=== PATIENT | male | born 1945 | race Native Hawaiian/Other Pacific Islander ===

== ENCOUNTER 2016-10-01 09:48 | Outpatient (CLI) | payer OTHER ==
[~2016-10-01 09:48] MED LIST: BENICAR HCT1 TA2 PO; BENICAR HCT1 TAB PO; BENTYL10 MG PO
== END 2016-10-01 19:48 | disposition home or self-care (01) ==
LOC: LABW 09:48
DX: I48.0 Paroxysmal atrial fibrillation (principal); Z79.01 Long term (current) use of anticoagulants; Z51.81 Encounter for therapeutic drug level monitoring
CPT/HCPCS: 36415; 85610

== ENCOUNTER 2016-10-08 09:53 | Outpatient (CLI) | payer OTHER | END 2016-10-08 19:13 | disposition home or self-care (01) | LOC: LABW 09:53 | DX: I48.0 Paroxysmal atrial fibrillation (principal); Z79.01 Long term (current) use of anticoagulants; Z51.81 Encounter for therapeutic drug level monitoring | CPT/HCPCS: 36415; 85610 ==

== ENCOUNTER 2016-10-21 12:54 | Outpatient (CLI) | payer OTHER | END 2016-10-21 23:05 | disposition home or self-care (01) | LOC: LABW 12:54 | DX: I48.0 Paroxysmal atrial fibrillation (principal); Z79.01 Long term (current) use of anticoagulants; Z51.81 Encounter for therapeutic drug level monitoring | CPT/HCPCS: 36415; 85610 ==

== ENCOUNTER 2016-10-28 13:16 | Outpatient (CLI) | payer OTHER | END 2016-10-28 20:07 | disposition home or self-care (01) | LOC: LABW 13:16 | DX: Z79.01 Long term (current) use of anticoagulants (principal); I48.0 Paroxysmal atrial fibrillation; Z51.81 Encounter for therapeutic drug level monitoring | CPT/HCPCS: 36415; 85610 ==

== ENCOUNTER 2016-11-04 13:08 | Outpatient (CLI) | payer OTHER | END 2016-11-04 20:12 | disposition home or self-care (01) | LOC: LABW 13:08 | DX: Z79.01 Long term (current) use of anticoagulants (principal); I48.0 Paroxysmal atrial fibrillation; Z51.81 Encounter for therapeutic drug level monitoring | CPT/HCPCS: 36415; 85610 ==

== ENCOUNTER 2016-11-11 07:37 | Outpatient (CLI) | payer OTHER | END 2016-11-11 22:59 | disposition home or self-care (01) | LOC: LABW 07:37 | DX: Z79.01 Long term (current) use of anticoagulants (principal); I48.0 Paroxysmal atrial fibrillation; Z51.81 Encounter for therapeutic drug level monitoring | CPT/HCPCS: 36415; 85610 ==

== ENCOUNTER 2016-11-19 07:56 | Outpatient (CLI) | payer OTHER | END 2016-11-19 23:36 | disposition home or self-care (01) | LOC: LABW 07:56 | DX: Z79.01 Long term (current) use of anticoagulants (principal); I48.0 Paroxysmal atrial fibrillation; Z51.81 Encounter for therapeutic drug level monitoring | CPT/HCPCS: 36415; 85610 ==

== ENCOUNTER 2016-11-21 09:43 | Outpatient (CLI) | payer OTHER | END 2016-11-21 19:21 | disposition home or self-care (01) | LOC: LABW 09:43 | DX: Z79.01 Long term (current) use of anticoagulants (principal); I48.0 Paroxysmal atrial fibrillation; Z51.81 Encounter for therapeutic drug level monitoring | CPT/HCPCS: 36415; 85610 ==

== ENCOUNTER 2016-11-25 08:21 | Outpatient (CLI) | payer OTHER | END 2016-11-26 01:57 | disposition home or self-care (01) | LOC: LABW 08:21 | DX: Z79.01 Long term (current) use of anticoagulants (principal); I48.0 Paroxysmal atrial fibrillation; Z51.81 Encounter for therapeutic drug level monitoring | CPT/HCPCS: 36415; 85610 ==

== ENCOUNTER 2016-12-02 08:04 | Outpatient (CLI) | payer OTHER | END 2016-12-02 19:32 | disposition home or self-care (01) | LOC: LABW 08:04 | DX: Z79.01 Long term (current) use of anticoagulants (principal); I48.0 Paroxysmal atrial fibrillation; Z51.81 Encounter for therapeutic drug level monitoring | CPT/HCPCS: 36415; 85610 ==

== ENCOUNTER 2016-12-09 09:27 | Outpatient (CLI) | payer OTHER | END 2016-12-09 19:44 | disposition home or self-care (01) | LOC: LABW 09:27 | DX: Z79.899 Other long term (current) drug therapy (principal); I48.0 Paroxysmal atrial fibrillation; Z51.81 Encounter for therapeutic drug level monitoring | CPT/HCPCS: 36415; 85610 ==

== ENCOUNTER 2016-12-16 08:14 | Outpatient (CLI) | payer OTHER | END 2016-12-16 19:19 | disposition home or self-care (01) | LOC: LABW 08:14 | DX: Z79.899 Other long term (current) drug therapy (principal); I48.0 Paroxysmal atrial fibrillation; Z51.81 Encounter for therapeutic drug level monitoring | CPT/HCPCS: 36415; 85610 ==

== ENCOUNTER 2016-12-23 08:48 | Outpatient (CLI) | payer OTHER | END 2016-12-23 19:22 | disposition home or self-care (01) | LOC: LABW 08:48 | DX: Z79.899 Other long term (current) drug therapy (principal); I48.0 Paroxysmal atrial fibrillation; Z51.81 Encounter for therapeutic drug level monitoring | CPT/HCPCS: 36415; 85610 ==

== ENCOUNTER 2016-12-30 08:24 | Outpatient (CLI) | payer OTHER | END 2016-12-30 09:24 | disposition home or self-care (01) | LOC: LABW 08:24 | DX: Z79.899 Other long term (current) drug therapy (principal); Z51.81 Encounter for therapeutic drug level monitoring; I48.0 Paroxysmal atrial fibrillation | CPT/HCPCS: 36415; 85610 ==

== ENCOUNTER 2017-01-01 12:42 | Outpatient (CLI) | payer OTHER | END 2017-01-01 13:42 | disposition home or self-care (01) | LOC: LABW 12:42 | DX: Z79.899 Other long term (current) drug therapy (principal); I48.0 Paroxysmal atrial fibrillation | CPT/HCPCS: 36415; 85610 ==

== ENCOUNTER 2017-01-06 08:26 | Outpatient (CLI) | payer OTHER | END 2017-01-06 19:09 | disposition home or self-care (01) | LOC: LABW 08:26 | DX: Z79.899 Other long term (current) drug therapy (principal); I48.0 Paroxysmal atrial fibrillation; Z51.81 Encounter for therapeutic drug level monitoring | CPT/HCPCS: 36415; 85610 ==

== ENCOUNTER 2017-01-13 07:44 | Outpatient (CLI) | payer OTHER | END 2017-01-13 19:22 | disposition home or self-care (01) | LOC: LABW 07:44 | DX: Z79.899 Other long term (current) drug therapy (principal); I48.0 Paroxysmal atrial fibrillation; Z51.81 Encounter for therapeutic drug level monitoring | CPT/HCPCS: 36415; 85610 ==

== ENCOUNTER 2017-01-20 09:17 | Outpatient (CLI) | payer OTHER | END 2017-01-20 19:24 | disposition home or self-care (01) | LOC: LABW 09:17 | DX: Z79.899 Other long term (current) drug therapy (principal); I48.0 Paroxysmal atrial fibrillation; Z51.81 Encounter for therapeutic drug level monitoring | CPT/HCPCS: 36415; 85610 ==

== ENCOUNTER 2017-01-24 07:29 | Outpatient (CLI) | payer OTHER | END 2017-01-24 19:07 | disposition home or self-care (01) | LOC: LABW 07:29 | DX: I48.0 Paroxysmal atrial fibrillation (principal); Z79.899 Other long term (current) drug therapy | CPT/HCPCS: 36415; 85610 ==

== ENCOUNTER 2017-01-28 08:39 | Outpatient (CLI) | payer OTHER | END 2017-01-28 19:06 | disposition home or self-care (01) | LOC: LABW 08:39 | DX: I48.0 Paroxysmal atrial fibrillation (principal); Z79.899 Other long term (current) drug therapy | CPT/HCPCS: 36415; 85610 ==

== ENCOUNTER 2017-02-03 09:11 | Outpatient (CLI) | payer OTHER | END 2017-02-03 19:05 | disposition home or self-care (01) | LOC: LABW 09:11 | DX: Z79.899 Other long term (current) drug therapy (principal); Z51.81 Encounter for therapeutic drug level monitoring; I48.0 Paroxysmal atrial fibrillation | CPT/HCPCS: 36415; 85610 ==

== ENCOUNTER 2017-02-10 09:17 | Outpatient (CLI) | payer OTHER | END 2017-02-10 19:20 | disposition home or self-care (01) | LOC: LABW 09:17 | DX: Z79.899 Other long term (current) drug therapy (principal); I48.0 Paroxysmal atrial fibrillation; Z51.81 Encounter for therapeutic drug level monitoring | CPT/HCPCS: 36415; 85610 ==

== ENCOUNTER 2017-02-25 10:09 | Outpatient (CLI) | payer OTHER | END 2017-02-25 19:30 | disposition home or self-care (01) | LOC: LABW 10:09 | DX: Z79.899 Other long term (current) drug therapy (principal); I48.0 Paroxysmal atrial fibrillation; Z51.81 Encounter for therapeutic drug level monitoring | CPT/HCPCS: 36415; 85610 ==

== ENCOUNTER 2017-03-17 13:45 | Outpatient (CLI) | payer OTHER | END 2017-03-17 19:12 | disposition home or self-care (01) | LOC: LABW 13:45 | DX: Z79.899 Other long term (current) drug therapy (principal); Z51.81 Encounter for therapeutic drug level monitoring; I48.0 Paroxysmal atrial fibrillation | CPT/HCPCS: 36415; 85610 ==

== ENCOUNTER 2017-04-07 12:25 | Outpatient (CLI) | payer OTHER | END 2017-04-07 13:30 | disposition home or self-care (01) | LOC: LABW 12:25 | DX: Z79.899 Other long term (current) drug therapy (principal); I48.0 Paroxysmal atrial fibrillation; Z51.81 Encounter for therapeutic drug level monitoring | CPT/HCPCS: 36415; 85610 ==

== ENCOUNTER 2017-04-14 07:35 | Outpatient (CLI) | payer OTHER | END 2017-04-14 08:35 | disposition home or self-care (01) | LOC: LABW 07:35 | DX: Z79.899 Other long term (current) drug therapy (principal); I48.0 Paroxysmal atrial fibrillation; Z51.81 Encounter for therapeutic drug level monitoring | CPT/HCPCS: 36415; 85610 ==

== ENCOUNTER 2017-04-21 07:44 | Outpatient (CLI) | payer OTHER | END 2017-04-21 19:24 | disposition home or self-care (01) | LOC: LABW 07:44 | DX: Z79.899 Other long term (current) drug therapy (principal); I48.0 Paroxysmal atrial fibrillation; Z51.81 Encounter for therapeutic drug level monitoring | CPT/HCPCS: 36415; 85610 ==

== ENCOUNTER 2017-04-28 08:02 | Outpatient (CLI) | payer OTHER | END 2017-04-28 09:05 | disposition home or self-care (01) | LOC: LABW 08:02 | DX: Z79.899 Other long term (current) drug therapy (principal); I48.0 Paroxysmal atrial fibrillation; Z51.81 Encounter for therapeutic drug level monitoring | CPT/HCPCS: 36415; 85610 ==

== ENCOUNTER 2017-05-05 08:07 | Outpatient (CLI) | payer OTHER | END 2017-05-05 19:19 | disposition home or self-care (01) | LOC: LABW 08:07 | DX: Z79.899 Other long term (current) drug therapy (principal); I48.0 Paroxysmal atrial fibrillation; Z51.81 Encounter for therapeutic drug level monitoring | CPT/HCPCS: 36415; 85610 ==

== ENCOUNTER 2017-05-19 13:14 | Outpatient (CLI) | payer OTHER | END 2017-05-19 19:38 | disposition home or self-care (01) | LOC: LABW 13:14 | DX: Z79.899 Other long term (current) drug therapy (principal); I48.0 Paroxysmal atrial fibrillation; Z51.81 Encounter for therapeutic drug level monitoring | CPT/HCPCS: 36415; 85610 ==

== ENCOUNTER 2017-06-03 08:32 | Outpatient (CLI) | payer OTHER | END 2017-06-03 18:59 | disposition home or self-care (01) | LOC: LABW 08:32 | DX: Z79.899 Other long term (current) drug therapy (principal); I48.0 Paroxysmal atrial fibrillation; Z51.81 Encounter for therapeutic drug level monitoring | CPT/HCPCS: 36415; 85610 ==

== ENCOUNTER 2017-06-23 11:08 | Outpatient (CLI) | payer OTHER | END 2017-06-23 19:04 | disposition home or self-care (01) | LOC: LABW 11:08 | DX: Z79.899 Other long term (current) drug therapy (principal); Z51.81 Encounter for therapeutic drug level monitoring; I48.0 Paroxysmal atrial fibrillation | CPT/HCPCS: 36415; 85610 ==

== ENCOUNTER 2017-07-14 11:04 | Outpatient (CLI) | payer OTHER | END 2017-07-14 12:05 | disposition home or self-care (01) | LOC: LABW 11:04 | DX: Z79.899 Other long term (current) drug therapy (principal); I48.0 Paroxysmal atrial fibrillation; Z51.81 Encounter for therapeutic drug level monitoring | CPT/HCPCS: 36415; 85610 ==

== ENCOUNTER 2017-07-21 08:58 | Outpatient (CLI) | payer OTHER | END 2017-07-21 19:30 | disposition home or self-care (01) | LOC: LABW 08:58 | DX: Z79.899 Other long term (current) drug therapy (principal); Z51.81 Encounter for therapeutic drug level monitoring; I48.0 Paroxysmal atrial fibrillation | CPT/HCPCS: 36415; 85610 ==

== ENCOUNTER 2017-07-28 10:34 | Outpatient (CLI) | payer OTHER | END 2017-07-28 19:02 | disposition home or self-care (01) | LOC: LABW 10:34 | DX: Z79.899 Other long term (current) drug therapy (principal); I48.0 Paroxysmal atrial fibrillation; Z51.81 Encounter for therapeutic drug level monitoring | CPT/HCPCS: 36415; 85610 ==

== ENCOUNTER 2017-08-04 08:34 | Outpatient (CLI) | payer OTHER | END 2017-08-04 09:35 | disposition home or self-care (01) | LOC: LABW 08:34 | DX: Z79.899 Other long term (current) drug therapy (principal); Z51.81 Encounter for therapeutic drug level monitoring; I48.0 Paroxysmal atrial fibrillation | CPT/HCPCS: 36415; 85610 ==

== ENCOUNTER 2017-08-11 09:44 | Outpatient (CLI) | payer OTHER | END 2017-08-11 10:45 | disposition home or self-care (01) | LOC: LABW 09:44 | DX: Z79.899 Other long term (current) drug therapy (principal); Z51.81 Encounter for therapeutic drug level monitoring; I48.0 Paroxysmal atrial fibrillation | CPT/HCPCS: 36415; 85610 ==

== ENCOUNTER 2017-08-18 09:20 | Outpatient (CLI) | payer OTHER | END 2017-08-18 19:04 | disposition home or self-care (01) | LOC: LABW 09:20 | DX: Z79.899 Other long term (current) drug therapy (principal); I48.0 Paroxysmal atrial fibrillation; Z51.81 Encounter for therapeutic drug level monitoring | CPT/HCPCS: 36415; 85610 ==

== ENCOUNTER 2017-08-25 10:15 | Outpatient (CLI) | payer OTHER | END 2017-08-25 18:56 | disposition home or self-care (01) | LOC: LABW 10:15 | DX: Z79.899 Other long term (current) drug therapy (principal); Z51.81 Encounter for therapeutic drug level monitoring; I48.0 Paroxysmal atrial fibrillation | CPT/HCPCS: 36415; 85610 ==

== ENCOUNTER 2017-09-01 09:56 | Outpatient (CLI) | payer OTHER | END 2017-09-01 11:00 | disposition home or self-care (01) | LOC: LABW 09:56 | DX: Z79.899 Other long term (current) drug therapy (principal); I48.0 Paroxysmal atrial fibrillation; Z51.81 Encounter for therapeutic drug level monitoring | CPT/HCPCS: 36415; 85610 ==

== ENCOUNTER 2017-09-08 11:05 | Outpatient (CLI) | payer OTHER | END 2017-09-08 19:18 | disposition home or self-care (01) | LOC: LABW 11:05 | DX: Z79.899 Other long term (current) drug therapy (principal); Z51.81 Encounter for therapeutic drug level monitoring; I48.0 Paroxysmal atrial fibrillation | CPT/HCPCS: 36415; 85610 ==

== ENCOUNTER 2017-09-23 10:06 | Outpatient (CLI) | payer OTHER | END 2017-09-23 19:29 | disposition home or self-care (01) | LOC: LABW 10:06 | DX: Z79.899 Other long term (current) drug therapy (principal); Z51.81 Encounter for therapeutic drug level monitoring; I48.0 Paroxysmal atrial fibrillation | CPT/HCPCS: 36415; 85610 ==

== ENCOUNTER 2017-09-30 14:45 | Outpatient (CLI) | payer OTHER | END 2017-09-30 21:23 | disposition home or self-care (01) | LOC: LABW 14:45 | DX: Z79.899 Other long term (current) drug therapy (principal); I48.0 Paroxysmal atrial fibrillation; Z51.81 Encounter for therapeutic drug level monitoring | CPT/HCPCS: 36415; 85610 ==

== ENCOUNTER 2017-10-06 10:41 | Outpatient (CLI) | payer OTHER | END 2017-10-06 20:28 | disposition home or self-care (01) | LOC: LABW 10:41 | DX: I48.0 Paroxysmal atrial fibrillation (principal); Z79.899 Other long term (current) drug therapy; Z51.81 Encounter for therapeutic drug level monitoring | CPT/HCPCS: 36415; 85610 ==

== ENCOUNTER 2017-10-14 10:26 | Outpatient (CLI) | payer OTHER | END 2017-10-14 11:30 | disposition home or self-care (01) | LOC: LABW 10:26 | DX: Z79.899 Other long term (current) drug therapy (principal); Z51.81 Encounter for therapeutic drug level monitoring; I48.0 Paroxysmal atrial fibrillation | CPT/HCPCS: 36415; 85610 ==

== ENCOUNTER 2017-10-17 11:27 | Outpatient (CLI) | payer OTHER | END 2017-10-17 19:31 | disposition home or self-care (01) | LOC: LABW 11:27 | DX: Z79.899 Other long term (current) drug therapy (principal); Z51.81 Encounter for therapeutic drug level monitoring; I48.0 Paroxysmal atrial fibrillation | CPT/HCPCS: 36415; 85610 ==

== ENCOUNTER 2017-10-24 09:03 | Outpatient (CLI) | payer OTHER | END 2017-10-24 21:49 | disposition home or self-care (01) | LOC: LABW 09:03 | DX: Z79.899 Other long term (current) drug therapy (principal); Z51.81 Encounter for therapeutic drug level monitoring; I48.0 Paroxysmal atrial fibrillation | CPT/HCPCS: 36415; 85610 ==

== ENCOUNTER 2017-10-31 10:48 | Outpatient (CLI) | payer OTHER | END 2017-10-31 19:23 | disposition home or self-care (01) | LOC: LABW 10:48 | DX: Z79.899 Other long term (current) drug therapy (principal); Z51.81 Encounter for therapeutic drug level monitoring; I48.0 Paroxysmal atrial fibrillation | CPT/HCPCS: 36415; 85610 ==

== ENCOUNTER 2017-11-07 10:07 | Outpatient (CLI) | payer OTHER | END 2017-11-07 21:06 | disposition home or self-care (01) | LOC: LABW 10:07 | DX: Z79.899 Other long term (current) drug therapy (principal); I48.0 Paroxysmal atrial fibrillation; Z51.81 Encounter for therapeutic drug level monitoring | CPT/HCPCS: 36415; 85610 ==

== ENCOUNTER 2017-11-14 13:47 | Outpatient (CLI) | payer OTHER | END 2017-11-14 19:40 | disposition home or self-care (01) | LOC: LAB 13:47 | DX: Z79.899 Other long term (current) drug therapy (principal); I48.0 Paroxysmal atrial fibrillation; Z51.81 Encounter for therapeutic drug level monitoring | CPT/HCPCS: 36415; 85610 ==

== ENCOUNTER 2017-11-21 10:18 | Outpatient (CLI) | payer OTHER | END 2017-11-21 21:58 | disposition home or self-care (01) | LOC: LABW 10:18 | DX: Z79.899 Other long term (current) drug therapy (principal); Z51.81 Encounter for therapeutic drug level monitoring; I48.0 Paroxysmal atrial fibrillation | CPT/HCPCS: 36415; 85610 ==

== ENCOUNTER 2017-12-12 10:13 | Outpatient (CLI) | payer OTHER | END 2017-12-12 18:00 | disposition home or self-care (01) | LOC: LABW 10:13 | DX: Z79.899 Other long term (current) drug therapy (principal); Z51.81 Encounter for therapeutic drug level monitoring; I48.0 Paroxysmal atrial fibrillation | CPT/HCPCS: 36415; 85610 ==

== ENCOUNTER 2018-01-01 11:36 | Outpatient (CLI) | payer OTHER | END 2018-01-01 22:48 | disposition home or self-care (01) | LOC: LABW 11:36 | DX: Z79.899 Other long term (current) drug therapy (principal); I48.0 Paroxysmal atrial fibrillation; Z51.81 Encounter for therapeutic drug level monitoring | CPT/HCPCS: 36415; 85610 ==

== ENCOUNTER 2018-01-08 11:15 | Outpatient (CLI) | payer OTHER | END 2018-01-08 19:32 | disposition home or self-care (01) | LOC: LABW 11:15 | DX: Z79.01 Long term (current) use of anticoagulants (principal); Z79.899 Other long term (current) drug therapy; I48.0 Paroxysmal atrial fibrillation | CPT/HCPCS: 36415; 85610 ==

== ENCOUNTER 2018-01-15 09:51 | Outpatient (CLI) | payer OTHER | END 2018-01-15 22:05 | disposition home or self-care (01) | LOC: LABW 09:51 | DX: Z79.01 Long term (current) use of anticoagulants (principal); Z79.899 Other long term (current) drug therapy; Z51.81 Encounter for therapeutic drug level monitoring; I48.0 Paroxysmal atrial fibrillation | CPT/HCPCS: 36415; 85610 ==

== ENCOUNTER 2018-01-22 13:17 | Outpatient (CLI) | payer OTHER | END 2018-01-22 19:40 | disposition home or self-care (01) | LOC: LABW 13:17 | DX: Z79.01 Long term (current) use of anticoagulants (principal); Z79.899 Other long term (current) drug therapy; Z51.81 Encounter for therapeutic drug level monitoring; I48.0 Paroxysmal atrial fibrillation | CPT/HCPCS: 36415; 85610 ==

== ENCOUNTER 2018-01-29 09:37 | Outpatient (CLI) | payer OTHER | END 2018-01-29 22:27 | disposition home or self-care (01) | LOC: LABW 09:37 | DX: Z79.01 Long term (current) use of anticoagulants (principal); Z79.899 Other long term (current) drug therapy; Z51.81 Encounter for therapeutic drug level monitoring; I48.0 Paroxysmal atrial fibrillation | CPT/HCPCS: 36415; 85610 ==

== ENCOUNTER 2018-02-05 09:15 | Outpatient (CLI) | payer OTHER | END 2018-02-05 22:04 | disposition home or self-care (01) | LOC: LABW 09:15 | DX: Z79.01 Long term (current) use of anticoagulants (principal); Z79.899 Other long term (current) drug therapy; Z51.81 Encounter for therapeutic drug level monitoring; I48.0 Paroxysmal atrial fibrillation | CPT/HCPCS: 36415; 85610 ==

== ENCOUNTER 2018-02-12 12:44 | Outpatient (CLI) | payer OTHER | END 2018-02-12 23:35 | disposition home or self-care (01) | LOC: LABW 12:44 | DX: Z79.01 Long term (current) use of anticoagulants (principal); Z79.899 Other long term (current) drug therapy; Z51.81 Encounter for therapeutic drug level monitoring; I48.0 Paroxysmal atrial fibrillation | CPT/HCPCS: 36415; 85610 ==

== ENCOUNTER 2018-02-19 13:21 | Outpatient (CLI) | payer OTHER | END 2018-02-19 19:12 | disposition home or self-care (01) | LOC: LABW 13:21 | DX: Z79.01 Long term (current) use of anticoagulants (principal); Z79.899 Other long term (current) drug therapy; Z51.81 Encounter for therapeutic drug level monitoring; I48.0 Paroxysmal atrial fibrillation | CPT/HCPCS: 36415; 85610 ==

== ENCOUNTER 2018-02-26 09:33 | Outpatient (CLI) | payer OTHER | END 2018-02-26 20:06 | disposition home or self-care (01) | LOC: LABW 09:33 | DX: Z79.01 Long term (current) use of anticoagulants (principal); Z79.899 Other long term (current) drug therapy; Z51.81 Encounter for therapeutic drug level monitoring; I48.0 Paroxysmal atrial fibrillation | CPT/HCPCS: 36415; 85610 ==

== ENCOUNTER 2018-03-05 09:56 | Outpatient (CLI) | payer OTHER | END 2018-03-05 20:22 | disposition home or self-care (01) | LOC: LABW 09:56 | DX: Z79.01 Long term (current) use of anticoagulants (principal); Z79.899 Other long term (current) drug therapy; Z51.81 Encounter for therapeutic drug level monitoring; I48.0 Paroxysmal atrial fibrillation | CPT/HCPCS: 36415; 85610 ==

== ENCOUNTER 2018-03-19 10:31 | Outpatient (CLI) | payer OTHER | END 2018-03-19 20:43 | disposition home or self-care (01) | LOC: LABW 10:31 | DX: I48.0 Paroxysmal atrial fibrillation (principal); Z79.01 Long term (current) use of anticoagulants; Z79.899 Other long term (current) drug therapy | CPT/HCPCS: 36415; 85610 ==

== ENCOUNTER 2018-04-08 10:16 | Outpatient (CLI) | payer OTHER | END 2018-04-08 23:24 | disposition home or self-care (01) | LOC: LABW 10:16 | DX: Z79.01 Long term (current) use of anticoagulants (principal); Z79.899 Other long term (current) drug therapy; Z51.81 Encounter for therapeutic drug level monitoring; I48.0 Paroxysmal atrial fibrillation | CPT/HCPCS: 36415; 85610 ==

== ENCOUNTER 2018-04-15 11:25 | Outpatient (CLI) | payer OTHER | END 2018-04-15 22:41 | disposition home or self-care (01) | LOC: LABW 11:25 | DX: Z79.01 Long term (current) use of anticoagulants (principal); Z79.899 Other long term (current) drug therapy; Z51.81 Encounter for therapeutic drug level monitoring | CPT/HCPCS: 36415; 85610 ==

== ENCOUNTER 2018-04-22 14:48 | Outpatient (CLI) | payer OTHER | END 2018-04-22 22:19 | disposition home or self-care (01) | LOC: LABW 14:48 | DX: Z79.01 Long term (current) use of anticoagulants (principal); I48.0 Paroxysmal atrial fibrillation; Z51.81 Encounter for therapeutic drug level monitoring | CPT/HCPCS: 36415; 85610 ==

== ENCOUNTER 2018-05-07 13:34 | Outpatient (CLI) | payer OTHER | END 2018-05-07 23:26 | disposition home or self-care (01) | LOC: LABW 13:34 | DX: I48.0 Paroxysmal atrial fibrillation (principal); Z79.01 Long term (current) use of anticoagulants; Z79.899 Other long term (current) drug therapy | CPT/HCPCS: 36415; 85610 ==

== ENCOUNTER 2018-05-13 15:39 | Outpatient (CLI) | payer OTHER | END 2018-05-13 23:59 | disposition home or self-care (01) | LOC: LABW 15:39 | DX: Z79.01 Long term (current) use of anticoagulants (principal); Z79.899 Other long term (current) drug therapy; I48.0 Paroxysmal atrial fibrillation | CPT/HCPCS: 36415; 85610 ==

== ENCOUNTER 2018-06-03 10:50 | Outpatient (CLI) | payer OTHER | END 2018-06-03 19:33 | disposition home or self-care (01) | LOC: LABW 10:50 | DX: I48.0 Paroxysmal atrial fibrillation (principal); Z79.01 Long term (current) use of anticoagulants; Z79.899 Other long term (current) drug therapy | CPT/HCPCS: 36415; 85610 ==

== ENCOUNTER 2018-06-25 14:44 | Outpatient (CLI) | payer OTHER | END 2018-06-25 20:58 | disposition home or self-care (01) | LOC: LABW 14:44 | DX: I48.0 Paroxysmal atrial fibrillation (principal); Z79.899 Other long term (current) drug therapy; Z79.01 Long term (current) use of anticoagulants | CPT/HCPCS: 36415; 85610 ==

== ENCOUNTER 2018-07-16 07:50 | Outpatient (CLI) | payer OTHER | END 2018-07-16 20:06 | disposition home or self-care (01) | LOC: LABW 07:50 | DX: Z79.01 Long term (current) use of anticoagulants (principal); Z79.899 Other long term (current) drug therapy; I48.0 Paroxysmal atrial fibrillation | CPT/HCPCS: 36415; 85610 ==

== ENCOUNTER 2018-08-05 07:56 | Outpatient (CLI) | payer OTHER | END 2018-08-05 20:28 | disposition home or self-care (01) | LOC: LABW 07:56 | DX: I48.0 Paroxysmal atrial fibrillation (principal); Z79.01 Long term (current) use of anticoagulants; Z79.899 Other long term (current) drug therapy | CPT/HCPCS: 36415; 85610 ==

== ENCOUNTER 2018-08-13 10:13 | Outpatient (CLI) | payer OTHER | END 2018-08-13 19:33 | disposition home or self-care (01) | LOC: LABW 10:13 | DX: Z79.01 Long term (current) use of anticoagulants (principal); Z79.899 Other long term (current) drug therapy; I48.0 Paroxysmal atrial fibrillation | CPT/HCPCS: 36415; 85610 ==

== ENCOUNTER 2018-08-19 09:45 | Outpatient (CLI) | payer OTHER | END 2018-08-19 19:36 | disposition home or self-care (01) | LOC: LABW 09:45 | DX: I48.0 Paroxysmal atrial fibrillation (principal); Z79.01 Long term (current) use of anticoagulants; Z79.899 Other long term (current) drug therapy | CPT/HCPCS: 36415; 85610 ==

== ENCOUNTER 2018-09-02 13:06 | Outpatient (CLI) | payer OTHER | END 2018-09-02 21:16 | disposition home or self-care (01) | LOC: LABW 13:06 | DX: I48.0 Paroxysmal atrial fibrillation (principal); Z79.01 Long term (current) use of anticoagulants; Z79.899 Other long term (current) drug therapy | CPT/HCPCS: 36415; 85610 ==

== ENCOUNTER 2018-09-23 12:15 | Outpatient (CLI) | payer OTHER | END 2018-09-23 19:06 | disposition home or self-care (01) | LOC: LABW 12:15 | DX: I48.0 Paroxysmal atrial fibrillation (principal); Z79.01 Long term (current) use of anticoagulants; Z79.899 Other long term (current) drug therapy | CPT/HCPCS: 36415; 85610 ==

== ENCOUNTER 2018-10-14 10:52 | Outpatient (CLI) | payer OTHER | END 2018-10-14 19:30 | disposition home or self-care (01) | LOC: LABW 10:52 | DX: I48.0 Paroxysmal atrial fibrillation (principal); Z79.01 Long term (current) use of anticoagulants; Z79.899 Other long term (current) drug therapy | CPT/HCPCS: 36415; 85610 ==

== ENCOUNTER 2018-10-28 09:58 | Outpatient (CLI) | payer OTHER | END 2018-10-28 23:01 | disposition home or self-care (01) | LOC: LABW 09:58 | DX: I48.0 Paroxysmal atrial fibrillation (principal); Z79.01 Long term (current) use of anticoagulants; Z79.899 Other long term (current) drug therapy | CPT/HCPCS: 36415; 85610 ==

== ENCOUNTER 2018-11-04 11:10 | Outpatient (CLI) | payer OTHER | END 2018-11-04 19:20 | disposition home or self-care (01) | LOC: LABW 11:10 | DX: I48.0 Paroxysmal atrial fibrillation (principal); Z79.899 Other long term (current) drug therapy; Z79.01 Long term (current) use of anticoagulants | CPT/HCPCS: 36415; 85610 ==

== ENCOUNTER 2018-11-11 11:06 | Outpatient (CLI) | payer OTHER | END 2018-11-11 23:59 | disposition home or self-care (01) | LOC: LABW 11:06 | DX: I48.0 Paroxysmal atrial fibrillation (principal); Z79.899 Other long term (current) drug therapy; Z79.01 Long term (current) use of anticoagulants | CPT/HCPCS: 36415; 85610 ==

== ENCOUNTER 2018-11-13 10:58 | Outpatient (CLI) | payer OTHER ==
[2018-11-13 12:10] LABS: PLATELET COUNT 410 K/uL (142-355)
[2018-11-13 12:11] LABS: POTASSIUM 3.5 mmol/L (3.6-5.2)
== END 2018-11-13 19:42 | disposition home or self-care (01) ==
LOC: RAD 10:58
PROVIDERS: Nurse Practitioner Family
DX: M25.561 Pain in right knee (principal)
CPT/HCPCS: 36415; 80053; 84550; 85027

== ENCOUNTER 2018-11-15 08:22 | Emergency (ER) | payer OTHER ==
[~2018-11-15] VITALS: Ht 180.3 cm; Wt 70.3 kg
[2018-11-15 09:39] LABS: PLATELET COUNT 451 K/uL (142-355)
[2018-11-15 09:45] LABS: POTASSIUM 3.3 mmol/L (3.6-5.2)
[2018-11-15 11:54] VITALS: BP 108/68; TEMP 98.6
== END 2018-11-15 11:45 | disposition home or self-care (01) ==
LOC: ED 08:22
PROVIDERS: Family Medicine
DX: M10.9 Gout, unspecified (principal); E87.6 Hypokalemia
CPT/HCPCS: 80053; 81000; 84550; 85027; 96360; 96374; 96375; 99284; J1885; J2405

== ENCOUNTER 2018-11-24 12:40 | Outpatient (CLI) | payer OTHER ==
[2018-11-24] MEDS ORDERED: WARF5TAB6 PO (17:04)
[2018-11-24] MEDS ORDERED: BENICAR5 MG PO (17:07)
[2018-11-24] MEDS ORDERED: SOTALOL AF80 MG PO (17:09)
== END 2018-11-24 19:29 | disposition home or self-care (01) ==
LOC: LABW 12:40
DX: I48.0 Paroxysmal atrial fibrillation (principal); Z79.899 Other long term (current) drug therapy; Z79.01 Long term (current) use of anticoagulants
CPT/HCPCS: 36415; 85610

== ENCOUNTER 2018-11-27 09:23 | Outpatient (CLI) | payer OTHER ==
[~2018-11-27 09:23] MED LIST changes: +BENICAR5 MG PO; +SOTALOL AF80 MG PO; +WARF5TAB6 PO
== END 2018-11-27 22:21 | disposition home or self-care (01) ==
LOC: LABW 09:23
DX: Z79.01 Long term (current) use of anticoagulants (principal); Z79.899 Other long term (current) drug therapy; I48.0 Paroxysmal atrial fibrillation
CPT/HCPCS: 36415; 85610

== ENCOUNTER 2018-12-04 10:32 | Outpatient (CLI) | payer OTHER | END 2018-12-04 19:12 | disposition home or self-care (01) | LOC: LABW 10:32 | DX: I48.0 Paroxysmal atrial fibrillation (principal); Z79.01 Long term (current) use of anticoagulants; Z79.899 Other long term (current) drug therapy | CPT/HCPCS: 36415; 85610 ==

== ENCOUNTER 2018-12-11 10:07 | Outpatient (CLI) | payer OTHER | END 2018-12-11 23:59 | disposition home or self-care (01) | LOC: LABW 10:07 | DX: I48.0 Paroxysmal atrial fibrillation (principal); Z79.899 Other long term (current) drug therapy; Z79.01 Long term (current) use of anticoagulants | CPT/HCPCS: 36415; 85610 ==

== ENCOUNTER 2018-12-17 13:19 | Outpatient (CLI) | payer OTHER | END 2018-12-17 16:00 | disposition home or self-care (01) | LOC: LABW 13:19 | DX: Z79.01 Long term (current) use of anticoagulants (principal); Z79.899 Other long term (current) drug therapy; I48.0 Paroxysmal atrial fibrillation | CPT/HCPCS: 36415; 85610 ==

== ENCOUNTER 2018-12-24 09:22 | Outpatient (CLI) | payer OTHER | END 2018-12-24 20:44 | disposition home or self-care (01) | LOC: LABW 09:22 | DX: Z79.01 Long term (current) use of anticoagulants (principal); Z79.899 Other long term (current) drug therapy; I48.0 Paroxysmal atrial fibrillation | CPT/HCPCS: 36415; 85610 ==

== ENCOUNTER 2018-12-31 10:23 | Outpatient (CLI) | payer OTHER | END 2018-12-31 19:19 | disposition home or self-care (01) | LOC: LABW 10:23 | DX: I48.0 Paroxysmal atrial fibrillation (principal); Z79.01 Long term (current) use of anticoagulants; Z79.899 Other long term (current) drug therapy | CPT/HCPCS: 36415; 85610 ==

== ENCOUNTER 2019-01-07 08:51 | Outpatient (CLI) | payer OTHER | END 2019-01-07 21:40 | disposition home or self-care (01) | LOC: LABW 08:51 | DX: Z79.01 Long term (current) use of anticoagulants (principal); Z79.899 Other long term (current) drug therapy; I48.0 Paroxysmal atrial fibrillation | CPT/HCPCS: 36415; 85610 ==

== ENCOUNTER 2019-01-21 10:53 | Outpatient (CLI) | payer OTHER | END 2019-01-21 21:04 | disposition home or self-care (01) | LOC: LABW 10:53 | DX: Z79.01 Long term (current) use of anticoagulants (principal); Z79.899 Other long term (current) drug therapy; I48.0 Paroxysmal atrial fibrillation | CPT/HCPCS: 36415; 85610 ==

== ENCOUNTER 2019-01-28 10:25 | Outpatient (CLI) | payer OTHER | END 2019-01-28 19:53 | disposition home or self-care (01) | LOC: LABW 10:25 | DX: Z79.01 Long term (current) use of anticoagulants (principal); Z79.899 Other long term (current) drug therapy; I48.0 Paroxysmal atrial fibrillation | CPT/HCPCS: 36415; 85610 ==

== ENCOUNTER 2019-02-04 10:23 | Outpatient (CLI) | payer OTHER | END 2019-02-04 23:10 | disposition home or self-care (01) | LOC: LABW 10:23 | DX: Z79.01 Long term (current) use of anticoagulants (principal); Z79.899 Other long term (current) drug therapy; I48.0 Paroxysmal atrial fibrillation | CPT/HCPCS: 36415; 85610 ==

== ENCOUNTER 2019-02-18 09:02 | Outpatient (CLI) | payer OTHER | END 2019-02-18 20:46 | disposition home or self-care (01) | LOC: LABW 09:02 | DX: Z79.01 Long term (current) use of anticoagulants (principal); Z79.899 Other long term (current) drug therapy; I48.0 Paroxysmal atrial fibrillation | CPT/HCPCS: 36415; 85610 ==

== ENCOUNTER 2019-02-25 11:05 | Outpatient (CLI) | payer OTHER | END 2019-02-25 19:19 | disposition home or self-care (01) | LOC: LABW 11:05 | DX: I48.0 Paroxysmal atrial fibrillation (principal); Z79.01 Long term (current) use of anticoagulants; Z79.899 Other long term (current) drug therapy | CPT/HCPCS: 36415; 85610 ==

== ENCOUNTER 2019-03-04 10:59 | Outpatient (CLI) | payer OTHER | END 2019-03-04 23:49 | disposition home or self-care (01) | LOC: LABW 10:59 | DX: I48.0 Paroxysmal atrial fibrillation (principal); Z79.01 Long term (current) use of anticoagulants; Z79.899 Other long term (current) drug therapy | CPT/HCPCS: 36415; 85610 ==

== ENCOUNTER 2019-03-10 09:22 | Outpatient (CLI) | payer OTHER | END 2019-03-10 23:41 | disposition home or self-care (01) | LOC: LABW 09:22 | DX: Z79.01 Long term (current) use of anticoagulants (principal); Z79.899 Other long term (current) drug therapy; I48.0 Paroxysmal atrial fibrillation | CPT/HCPCS: 36415; 85610 ==

== ENCOUNTER 2019-03-17 10:14 | Outpatient (CLI) | payer OTHER | END 2019-03-17 23:36 | disposition home or self-care (01) | LOC: LABW 10:14 | DX: I48.0 Paroxysmal atrial fibrillation (principal); Z79.01 Long term (current) use of anticoagulants; Z79.899 Other long term (current) drug therapy | CPT/HCPCS: 36415; 85610 ==

== ENCOUNTER 2019-03-24 11:18 | Outpatient (CLI) | payer OTHER | END 2019-03-24 23:28 | disposition home or self-care (01) | LOC: LABW 11:18 | DX: I48.0 Paroxysmal atrial fibrillation (principal); Z79.01 Long term (current) use of anticoagulants; Z79.899 Other long term (current) drug therapy | CPT/HCPCS: 36415; 85610 ==

== ENCOUNTER 2019-03-31 10:25 | Outpatient (CLI) | payer OTHER | END 2019-03-31 19:20 | disposition home or self-care (01) | LOC: LABW 10:25 | DX: I48.0 Paroxysmal atrial fibrillation (principal); Z79.899 Other long term (current) drug therapy; Z79.01 Long term (current) use of anticoagulants | CPT/HCPCS: 36415; 85610 ==

== ENCOUNTER 2019-04-08 09:08 | Outpatient (CLI) | payer OTHER | END 2019-04-08 23:44 | disposition home or self-care (01) | LOC: LABW 09:08 | DX: I48.0 Paroxysmal atrial fibrillation (principal); Z79.01 Long term (current) use of anticoagulants; Z79.899 Other long term (current) drug therapy | CPT/HCPCS: 36415; 85610 ==

== ENCOUNTER 2019-04-15 09:33 | Outpatient (CLI) | payer OTHER | END 2019-04-15 23:03 | disposition home or self-care (01) | LOC: LABW 09:33 | DX: I48.0 Paroxysmal atrial fibrillation (principal); Z79.01 Long term (current) use of anticoagulants; Z79.899 Other long term (current) drug therapy | CPT/HCPCS: 36415; 85610 ==

== ENCOUNTER 2019-04-28 08:40 | Outpatient (CLI) | payer OTHER | END 2019-04-28 22:15 | disposition home or self-care (01) | LOC: LABW 08:40 | DX: I48.0 Paroxysmal atrial fibrillation (principal); Z79.01 Long term (current) use of anticoagulants; Z79.899 Other long term (current) drug therapy | CPT/HCPCS: 36415; 85610 ==

== ENCOUNTER 2019-05-05 09:23 | Outpatient (CLI) | payer OTHER | END 2019-05-05 23:44 | disposition home or self-care (01) | LOC: LABW 09:23 | DX: I48.0 Paroxysmal atrial fibrillation (principal); Z79.01 Long term (current) use of anticoagulants; Z79.899 Other long term (current) drug therapy | CPT/HCPCS: 36415; 85610 ==

== ENCOUNTER 2019-05-12 12:38 | Outpatient (CLI) | payer OTHER | END 2019-05-12 19:53 | disposition home or self-care (01) | LOC: LABW 12:38 | DX: I48.0 Paroxysmal atrial fibrillation (principal); Z79.01 Long term (current) use of anticoagulants; Z79.899 Other long term (current) drug therapy | CPT/HCPCS: 36415; 85610 ==

== ENCOUNTER 2019-05-19 09:02 | Outpatient (CLI) | payer OTHER | END 2019-05-19 23:59 | LOC: LABW 09:02 | DX: I48.0 Paroxysmal atrial fibrillation (principal); Z79.01 Long term (current) use of anticoagulants; Z79.899 Other long term (current) drug therapy | CPT/HCPCS: 36415; 85610 ==

== ENCOUNTER 2019-05-26 09:09 | Outpatient (CLI) | payer OTHER | END 2019-05-26 19:56 | disposition home or self-care (01) | LOC: LABW 09:09 | DX: I48.0 Paroxysmal atrial fibrillation (principal); Z79.01 Long term (current) use of anticoagulants; Z79.899 Other long term (current) drug therapy | CPT/HCPCS: 36415; 85610 ==

== ENCOUNTER 2019-06-02 08:56 | Outpatient (CLI) | payer OTHER | END 2019-06-02 21:35 | disposition home or self-care (01) | LOC: LABW 08:56 | DX: I48.0 Paroxysmal atrial fibrillation (principal); Z79.01 Long term (current) use of anticoagulants; Z79.899 Other long term (current) drug therapy | CPT/HCPCS: 36415; 85610 ==

== ENCOUNTER 2019-06-07 09:14 | Outpatient (CLI) | payer OTHER | END 2019-06-07 22:37 | disposition home or self-care (01) | LOC: LABW 09:14 | DX: I48.0 Paroxysmal atrial fibrillation (principal); Z79.01 Long term (current) use of anticoagulants; Z79.899 Other long term (current) drug therapy | CPT/HCPCS: 36415; 85610 ==

== ENCOUNTER 2019-06-16 08:40 | Outpatient (CLI) | payer OTHER | END 2019-06-16 20:08 | disposition home or self-care (01) | LOC: LABW 08:40 | DX: I48.0 Paroxysmal atrial fibrillation (principal); Z79.01 Long term (current) use of anticoagulants; Z79.899 Other long term (current) drug therapy | CPT/HCPCS: 36415; 85610 ==

== ENCOUNTER 2019-06-23 09:44 | Outpatient (CLI) | payer OTHER | END 2019-06-23 20:29 | disposition home or self-care (01) | LOC: LABW 09:44 | DX: I48.0 Paroxysmal atrial fibrillation (principal); Z79.01 Long term (current) use of anticoagulants; Z79.899 Other long term (current) drug therapy | CPT/HCPCS: 36415; 85610 ==

== ENCOUNTER 2019-07-07 11:57 | Outpatient (CLI) | payer OTHER | END 2019-07-07 23:00 | disposition home or self-care (01) | LOC: LABW 11:57 | DX: I48.0 Paroxysmal atrial fibrillation (principal); Z79.01 Long term (current) use of anticoagulants; Z79.899 Other long term (current) drug therapy | CPT/HCPCS: 36415; 85610 ==

== ENCOUNTER 2019-07-28 09:03 | Outpatient (CLI) | payer OTHER | END 2019-07-28 19:39 | disposition home or self-care (01) | LOC: LABW 09:03 | DX: I48.0 Paroxysmal atrial fibrillation (principal); Z79.899 Other long term (current) drug therapy; Z79.01 Long term (current) use of anticoagulants | CPT/HCPCS: 36415; 85610 ==

== ENCOUNTER 2019-08-05 12:17 | Outpatient (CLI) | payer OTHER | END 2019-08-05 20:44 | disposition home or self-care (01) | LOC: LABW 12:17 | DX: I48.0 Paroxysmal atrial fibrillation (principal); Z79.01 Long term (current) use of anticoagulants; Z79.899 Other long term (current) drug therapy | CPT/HCPCS: 36415; 85610 ==

== ENCOUNTER 2019-09-01 11:19 | Outpatient (CLI) | payer OTHER | END 2019-09-01 20:06 | disposition home or self-care (01) | LOC: LABW 11:19 | DX: I48.0 Paroxysmal atrial fibrillation (principal); Z79.01 Long term (current) use of anticoagulants; Z79.899 Other long term (current) drug therapy | CPT/HCPCS: 36415; 85610 ==

== ENCOUNTER 2019-09-08 10:42 | Outpatient (CLI) | payer OTHER | END 2019-09-08 21:53 | disposition home or self-care (01) | LOC: LABW 10:42 | DX: I48.0 Paroxysmal atrial fibrillation (principal); Z79.01 Long term (current) use of anticoagulants; Z79.899 Other long term (current) drug therapy | CPT/HCPCS: 36415; 85610 ==

== ENCOUNTER 2019-09-15 12:33 | Outpatient (CLI) | payer OTHER | END 2019-09-15 19:35 | disposition home or self-care (01) | LOC: LABW 12:33 | DX: I48.0 Paroxysmal atrial fibrillation (principal); Z79.01 Long term (current) use of anticoagulants; Z79.899 Other long term (current) drug therapy | CPT/HCPCS: 36415; 85610 ==

== ENCOUNTER 2019-09-30 10:14 | Outpatient (CLI) | payer OTHER | END 2019-09-30 19:37 | disposition home or self-care (01) | LOC: LABW 10:14 | DX: I48.0 Paroxysmal atrial fibrillation (principal); Z79.01 Long term (current) use of anticoagulants; Z79.899 Other long term (current) drug therapy | CPT/HCPCS: 36415; 85610 ==

== ENCOUNTER 2019-10-06 09:43 | Outpatient (CLI) | payer OTHER | END 2019-10-06 19:25 | disposition home or self-care (01) | LOC: LABW 09:43 | DX: I48.0 Paroxysmal atrial fibrillation (principal); Z79.01 Long term (current) use of anticoagulants; Z79.899 Other long term (current) drug therapy | CPT/HCPCS: 36415; 85610 ==

== ENCOUNTER 2019-10-13 08:42 | Outpatient (CLI) | payer OTHER | END 2019-10-13 20:48 | disposition home or self-care (01) | LOC: LABW 08:42 | DX: I48.0 Paroxysmal atrial fibrillation (principal); Z79.01 Long term (current) use of anticoagulants; Z79.899 Other long term (current) drug therapy | CPT/HCPCS: 36415; 85610 ==

== ENCOUNTER 2019-10-20 09:12 | Outpatient (CLI) | payer OTHER | END 2019-10-20 21:08 | disposition home or self-care (01) | LOC: LABW 09:12 | DX: I48.0 Paroxysmal atrial fibrillation (principal); Z79.01 Long term (current) use of anticoagulants; Z79.899 Other long term (current) drug therapy | CPT/HCPCS: 36415; 85610 ==

== ENCOUNTER 2019-10-25 09:24 | Outpatient (CLI) | payer OTHER | END 2019-10-25 19:29 | disposition home or self-care (01) | LOC: LABW 09:24 | DX: I48.0 Paroxysmal atrial fibrillation (principal); Z79.01 Long term (current) use of anticoagulants; Z79.899 Other long term (current) drug therapy | CPT/HCPCS: 36415; 85610 ==

== ENCOUNTER 2019-11-01 09:36 | Outpatient (CLI) | payer OTHER | END 2019-11-01 19:11 | disposition home or self-care (01) | LOC: LABW 09:36 | DX: I48.0 Paroxysmal atrial fibrillation (principal); Z79.899 Other long term (current) drug therapy; Z79.01 Long term (current) use of anticoagulants | CPT/HCPCS: 36415; 85610 ==

== ENCOUNTER 2019-11-09 09:58 | Outpatient (CLI) | payer OTHER | END 2019-11-09 20:05 | disposition home or self-care (01) | LOC: LABW 09:58 | DX: I48.0 Paroxysmal atrial fibrillation (principal); Z79.01 Long term (current) use of anticoagulants; Z79.899 Other long term (current) drug therapy | CPT/HCPCS: 36415; 85610 ==

== ENCOUNTER 2019-11-17 08:31 | Outpatient (CLI) | payer OTHER | END 2019-11-17 20:52 | disposition home or self-care (01) | LOC: LABW 08:31 | DX: I48.0 Paroxysmal atrial fibrillation (principal); Z79.01 Long term (current) use of anticoagulants; Z79.899 Other long term (current) drug therapy | CPT/HCPCS: 36415; 85610 ==

== ENCOUNTER 2019-12-08 11:13 | Outpatient (CLI) | payer OTHER | END 2019-12-08 22:31 | disposition home or self-care (01) | LOC: LABW 11:13 | DX: I48.0 Paroxysmal atrial fibrillation (principal); Z79.01 Long term (current) use of anticoagulants; Z79.899 Other long term (current) drug therapy | CPT/HCPCS: 36415; 85610 ==

== ENCOUNTER 2020-01-04 10:36 | Outpatient (CLI) | payer OTHER | END 2020-01-04 19:13 | disposition home or self-care (01) | LOC: LABW 10:36 | DX: I48.0 Paroxysmal atrial fibrillation (principal); Z79.01 Long term (current) use of anticoagulants; Z79.899 Other long term (current) drug therapy | CPT/HCPCS: 36415; 85610 ==

== ENCOUNTER 2020-01-26 09:27 | Outpatient (CLI) | payer OTHER | END 2020-01-26 21:36 | disposition home or self-care (01) | LOC: LABW 09:27 | DX: I48.0 Paroxysmal atrial fibrillation (principal); Z79.01 Long term (current) use of anticoagulants; Z79.899 Other long term (current) drug therapy | CPT/HCPCS: 36415; 85610 ==

== ENCOUNTER 2020-02-16 10:11 | Outpatient (CLI) | payer OTHER | END 2020-02-16 22:22 | disposition home or self-care (01) | LOC: LABW 10:11 | DX: I48.0 Paroxysmal atrial fibrillation (principal); Z79.01 Long term (current) use of anticoagulants; Z79.899 Other long term (current) drug therapy | CPT/HCPCS: 36415; 85610 ==

== ENCOUNTER 2020-02-23 09:18 | Outpatient (CLI) | payer OTHER | END 2020-02-23 20:06 | disposition home or self-care (01) | LOC: LABW 09:18 | DX: Z79.01 Long term (current) use of anticoagulants (principal); Z79.899 Other long term (current) drug therapy; I48.0 Paroxysmal atrial fibrillation | CPT/HCPCS: 36415; 85610 ==

== ENCOUNTER 2020-03-01 08:16 | Outpatient (CLI) | payer OTHER | END 2020-03-01 21:49 | disposition home or self-care (01) | LOC: LAB 08:16 | DX: I48.0 Paroxysmal atrial fibrillation (principal); Z79.01 Long term (current) use of anticoagulants; Z79.899 Other long term (current) drug therapy | CPT/HCPCS: 36415; 85610 ==

== ENCOUNTER 2020-03-08 09:32 | Outpatient (CLI) | payer OTHER | END 2020-03-08 19:15 | disposition home or self-care (01) | LOC: LABW 09:32 | DX: I48.0 Paroxysmal atrial fibrillation (principal); Z79.01 Long term (current) use of anticoagulants; Z79.899 Other long term (current) drug therapy | CPT/HCPCS: 36415; 85610 ==

== ENCOUNTER 2020-03-15 08:34 | Outpatient (CLI) | payer OTHER | END 2020-03-15 21:45 | disposition home or self-care (01) | LOC: LABW 08:34 | DX: I48.0 Paroxysmal atrial fibrillation (principal); Z79.01 Long term (current) use of anticoagulants; Z79.899 Other long term (current) drug therapy | CPT/HCPCS: 36415; 85610 ==

== ENCOUNTER 2020-03-22 09:36 | Outpatient (CLI) | payer OTHER | END 2020-03-22 19:46 | disposition home or self-care (01) | LOC: LABW 09:36 | DX: I48.0 Paroxysmal atrial fibrillation (principal); Z79.01 Long term (current) use of anticoagulants; Z79.899 Other long term (current) drug therapy | CPT/HCPCS: 36415; 85610 ==

== ENCOUNTER 2020-03-29 08:58 | Outpatient (CLI) | payer OTHER | END 2020-03-29 22:03 | disposition home or self-care (01) | LOC: LABW 08:58 | DX: I48.0 Paroxysmal atrial fibrillation (principal); Z79.01 Long term (current) use of anticoagulants; Z79.899 Other long term (current) drug therapy | CPT/HCPCS: 36415; 85610 ==

== ENCOUNTER 2020-04-19 11:36 | Outpatient (CLI) | payer OTHER | END 2020-04-19 19:05 | disposition home or self-care (01) | LOC: LABW 11:36 | DX: I48.0 Paroxysmal atrial fibrillation (principal); Z79.01 Long term (current) use of anticoagulants; Z79.899 Other long term (current) drug therapy | CPT/HCPCS: 36415; 85610 ==

== ENCOUNTER 2020-04-26 09:37 | Outpatient (CLI) | payer OTHER | END 2020-04-26 19:49 | disposition home or self-care (01) | LOC: LABW 09:37 | DX: I48.0 Paroxysmal atrial fibrillation (principal); Z79.01 Long term (current) use of anticoagulants; Z79.899 Other long term (current) drug therapy | CPT/HCPCS: 36415; 85610 ==

== ENCOUNTER 2020-05-03 09:50 | Outpatient (CLI) | payer OTHER | END 2020-05-03 19:44 | disposition home or self-care (01) | LOC: LABW 09:50 | DX: I48.0 Paroxysmal atrial fibrillation (principal); Z79.01 Long term (current) use of anticoagulants; Z79.899 Other long term (current) drug therapy | CPT/HCPCS: 36415; 85610 ==

== ENCOUNTER 2020-05-08 09:41 | Outpatient (CLI) | payer OTHER | END 2020-05-08 19:15 | disposition home or self-care (01) | LOC: LABW 09:41 | DX: I48.0 Paroxysmal atrial fibrillation (principal); Z79.01 Long term (current) use of anticoagulants; Z79.899 Other long term (current) drug therapy | CPT/HCPCS: 36415; 85610 ==

== ENCOUNTER 2020-05-17 09:44 | Outpatient (CLI) | payer OTHER | END 2020-05-17 21:27 | disposition home or self-care (01) | LOC: LABW 09:44 | DX: I48.0 Paroxysmal atrial fibrillation (principal); Z79.01 Long term (current) use of anticoagulants; Z79.899 Other long term (current) drug therapy | CPT/HCPCS: 36415; 85610 ==

== ENCOUNTER 2020-05-24 10:13 | Outpatient (CLI) | payer OTHER | END 2020-05-24 22:00 | disposition home or self-care (01) | LOC: LABW 10:13 | DX: I48.0 Paroxysmal atrial fibrillation (principal); Z79.01 Long term (current) use of anticoagulants; Z79.899 Other long term (current) drug therapy | CPT/HCPCS: 36415; 85610 ==

== ENCOUNTER 2020-05-31 09:11 | Outpatient (CLI) | payer OTHER | END 2020-05-31 23:57 | disposition home or self-care (01) | LOC: LABW 09:11 | DX: I48.0 Paroxysmal atrial fibrillation (principal); Z79.01 Long term (current) use of anticoagulants; Z79.899 Other long term (current) drug therapy | CPT/HCPCS: 36415; 85610 ==

== ENCOUNTER 2020-06-07 13:04 | Outpatient (CLI) | payer OTHER | END 2020-06-07 23:31 | disposition home or self-care (01) | LOC: LABW 13:04 | DX: I48.0 Paroxysmal atrial fibrillation (principal); Z79.01 Long term (current) use of anticoagulants; Z79.899 Other long term (current) drug therapy | CPT/HCPCS: 36415; 85610 ==

== ENCOUNTER 2020-06-14 09:49 | Outpatient (CLI) | payer OTHER | END 2020-06-14 20:13 | disposition home or self-care (01) | LOC: LABW 09:49 | DX: I48.0 Paroxysmal atrial fibrillation (principal); Z79.899 Other long term (current) drug therapy; Z79.01 Long term (current) use of anticoagulants | CPT/HCPCS: 36415; 85610 ==

== ENCOUNTER 2020-06-21 11:32 | Outpatient (CLI) | payer OTHER | END 2020-06-21 23:23 | disposition home or self-care (01) | LOC: LABW 11:32 | DX: I48.0 Paroxysmal atrial fibrillation (principal); Z79.01 Long term (current) use of anticoagulants; Z79.899 Other long term (current) drug therapy | CPT/HCPCS: 36415; 85610 ==

== ENCOUNTER 2020-06-27 11:32 | Outpatient (CLI) | payer OTHER | END 2020-06-27 19:36 | disposition home or self-care (01) | LOC: LABW 11:32 | DX: I48.0 Paroxysmal atrial fibrillation (principal); Z79.01 Long term (current) use of anticoagulants; Z79.899 Other long term (current) drug therapy | CPT/HCPCS: 36415; 85610 ==

== ENCOUNTER 2020-07-05 10:21 | Outpatient (CLI) | payer OTHER | END 2020-07-05 22:56 | disposition home or self-care (01) | LOC: LABW 10:21 | DX: I48.0 Paroxysmal atrial fibrillation (principal); Z79.01 Long term (current) use of anticoagulants; Z79.899 Other long term (current) drug therapy | CPT/HCPCS: 36415; 85610 ==

== ENCOUNTER 2020-07-26 12:02 | Outpatient (CLI) | payer OTHER | END 2020-07-26 23:24 | disposition home or self-care (01) | LOC: LABW 12:02 | DX: I48.0 Paroxysmal atrial fibrillation (principal); Z79.899 Other long term (current) drug therapy; Z79.01 Long term (current) use of anticoagulants | CPT/HCPCS: 36415; 85610 ==

== ENCOUNTER 2020-08-02 10:49 | Outpatient (CLI) | payer OTHER | END 2020-08-02 21:52 | disposition home or self-care (01) | LOC: LABW 10:49 | DX: I48.0 Paroxysmal atrial fibrillation (principal); Z79.01 Long term (current) use of anticoagulants; Z79.899 Other long term (current) drug therapy | CPT/HCPCS: 36415; 85610 ==

== ENCOUNTER 2020-08-09 12:38 | Outpatient (CLI) | payer OTHER | END 2020-08-09 19:50 | disposition home or self-care (01) | LOC: LABW 12:38 | PROVIDERS: ATTEND Nurse Practitioner Adult Health | DX: I48.0 Paroxysmal atrial fibrillation (principal); Z79.01 Long term (current) use of anticoagulants; Z79.899 Other long term (current) drug therapy | CPT/HCPCS: 36415; 85610 ==

== ENCOUNTER 2020-08-16 08:57 | Outpatient (CLI) | payer OTHER | END 2020-08-16 20:41 | disposition home or self-care (01) | LOC: LABW 08:57 | PROVIDERS: ATTEND Nurse Practitioner Adult Health | DX: I48.0 Paroxysmal atrial fibrillation (principal); Z79.01 Long term (current) use of anticoagulants; Z79.899 Other long term (current) drug therapy | CPT/HCPCS: 36415; 85610 ==

== ENCOUNTER 2020-08-23 12:01 | Outpatient (CLI) | payer OTHER | END 2020-08-23 23:51 | disposition home or self-care (01) | LOC: LABW 12:01 | PROVIDERS: ATTEND Specialist | DX: I48.0 Paroxysmal atrial fibrillation (principal); Z79.01 Long term (current) use of anticoagulants; Z79.899 Other long term (current) drug therapy | CPT/HCPCS: 36415; 85610 ==

== ENCOUNTER 2020-08-30 12:59 | Outpatient (CLI) | payer OTHER | END 2020-08-30 20:00 | disposition home or self-care (01) | LOC: LABW 12:59 | PROVIDERS: ATTEND Nurse Practitioner Adult Health | DX: I48.0 Paroxysmal atrial fibrillation (principal); Z79.01 Long term (current) use of anticoagulants; Z79.899 Other long term (current) drug therapy | CPT/HCPCS: 36415; 85610 ==

== ENCOUNTER 2020-09-07 09:11 | Outpatient (CLI) | payer OTHER | END 2020-09-07 20:06 | disposition home or self-care (01) | LOC: LAB 09:11 | PROVIDERS: ATTEND Specialist | DX: I48.0 Paroxysmal atrial fibrillation (principal); Z79.01 Long term (current) use of anticoagulants; Z79.899 Other long term (current) drug therapy | CPT/HCPCS: 36415; 85610 ==

== ENCOUNTER 2020-09-13 08:29 | Outpatient (CLI) | payer OTHER | END 2020-09-13 22:09 | disposition home or self-care (01) | LOC: LABW 08:29 | PROVIDERS: ATTEND Nurse Practitioner Adult Health | DX: I48.0 Paroxysmal atrial fibrillation (principal); Z79.899 Other long term (current) drug therapy; Z79.01 Long term (current) use of anticoagulants | CPT/HCPCS: 36415; 85610 ==

== ENCOUNTER 2020-09-20 09:14 | Outpatient (CLI) | payer OTHER | END 2020-09-20 19:54 | disposition home or self-care (01) | LOC: LABW 09:14 | PROVIDERS: ATTEND Nurse Practitioner Adult Health | DX: I48.0 Paroxysmal atrial fibrillation (principal); Z79.01 Long term (current) use of anticoagulants; Z79.899 Other long term (current) drug therapy | CPT/HCPCS: 36415; 85610 ==

== ENCOUNTER 2020-09-27 10:19 | Outpatient (CLI) | payer OTHER | END 2020-09-27 20:20 | disposition home or self-care (01) | LOC: LABW 10:19 | PROVIDERS: ATTEND Nurse Practitioner Adult Health | DX: I48.0 Paroxysmal atrial fibrillation (principal); Z79.01 Long term (current) use of anticoagulants; Z79.899 Other long term (current) drug therapy | CPT/HCPCS: 36415; 85610 ==

== ENCOUNTER 2020-10-04 09:37 | Outpatient (CLI) | payer OTHER | END 2020-10-04 21:39 | disposition home or self-care (01) | LOC: LABW 09:37 | PROVIDERS: ATTEND Specialist | DX: I48.0 Paroxysmal atrial fibrillation (principal); Z79.01 Long term (current) use of anticoagulants; Z79.899 Other long term (current) drug therapy | CPT/HCPCS: 36415; 85610 ==

== ENCOUNTER 2020-10-11 10:08 | Outpatient (CLI) | payer OTHER | END 2020-10-11 19:37 | disposition home or self-care (01) | LOC: LABW 10:08 | PROVIDERS: ATTEND Nurse Practitioner Adult Health | DX: I48.0 Paroxysmal atrial fibrillation (principal); Z79.01 Long term (current) use of anticoagulants; Z79.899 Other long term (current) drug therapy | CPT/HCPCS: 36415; 85610 ==

== ENCOUNTER 2020-10-18 09:53 | Outpatient (CLI) | payer OTHER | END 2020-10-18 22:59 | disposition home or self-care (01) | LOC: LABW 09:53 | PROVIDERS: ATTEND Specialist | DX: I48.0 Paroxysmal atrial fibrillation (principal); Z79.01 Long term (current) use of anticoagulants; Z79.899 Other long term (current) drug therapy | CPT/HCPCS: 36415; 85610 ==

== ENCOUNTER 2020-11-02 09:58 | Outpatient (CLI) | payer OTHER | END 2020-11-02 20:07 | disposition home or self-care (01) | LOC: LABW 09:58 | PROVIDERS: ATTEND Nurse Practitioner Adult Health | DX: I48.0 Paroxysmal atrial fibrillation (principal); Z79.01 Long term (current) use of anticoagulants; Z79.899 Other long term (current) drug therapy | CPT/HCPCS: 36415; 85610 ==

== ENCOUNTER 2020-11-22 11:50 | Outpatient (CLI) | payer OTHER | END 2020-11-22 19:39 | disposition home or self-care (01) | LOC: LAB 11:50 | PROVIDERS: ATTEND Nurse Practitioner Adult Health | DX: I48.0 Paroxysmal atrial fibrillation (principal); Z79.01 Long term (current) use of anticoagulants; Z79.899 Other long term (current) drug therapy | CPT/HCPCS: 36415; 85610 ==

== ENCOUNTER 2020-12-13 10:13 | Outpatient (CLI) | payer OTHER | END 2020-12-13 22:10 | disposition home or self-care (01) | LOC: LABW 10:13 | PROVIDERS: ATTEND Nurse Practitioner Adult Health | DX: I48.0 Paroxysmal atrial fibrillation (principal); Z79.01 Long term (current) use of anticoagulants; Z79.899 Other long term (current) drug therapy | CPT/HCPCS: 36415; 85610 ==

== ENCOUNTER 2020-12-20 13:07 | Outpatient (CLI) | payer OTHER | END 2020-12-20 22:05 | disposition home or self-care (01) | LOC: LABW 13:07 | PROVIDERS: ATTEND Nurse Practitioner Adult Health | DX: I48.0 Paroxysmal atrial fibrillation (principal); Z79.899 Other long term (current) drug therapy | CPT/HCPCS: 36415; 85610 ==

== ENCOUNTER 2021-01-18 09:05 | Outpatient (CLI) | payer OTHER | END 2021-01-18 19:35 | disposition home or self-care (01) | LOC: LABW 09:05 | PROVIDERS: ATTEND Nurse Practitioner Adult Health | DX: I48.0 Paroxysmal atrial fibrillation (principal); Z79.899 Other long term (current) drug therapy | CPT/HCPCS: 36415; 85610 ==

== ENCOUNTER 2021-01-24 09:31 | Outpatient (CLI) | payer OTHER | END 2021-01-24 21:50 | disposition home or self-care (01) | LOC: LABW 09:31 | PROVIDERS: ATTEND Nurse Practitioner Adult Health | DX: I48.0 Paroxysmal atrial fibrillation (principal); Z79.899 Other long term (current) drug therapy | CPT/HCPCS: 36415; 85610 ==

== ENCOUNTER 2021-02-01 10:30 | Outpatient (CLI) | payer OTHER | END 2021-02-01 20:27 | disposition home or self-care (01) | LOC: LABW 10:30 | PROVIDERS: ATTEND Nurse Practitioner Adult Health | DX: I48.0 Paroxysmal atrial fibrillation (principal); Z79.899 Other long term (current) drug therapy | CPT/HCPCS: 36415; 85610 ==

== ENCOUNTER 2021-02-07 08:58 | Outpatient (CLI) | payer OTHER | END 2021-02-07 20:40 | disposition home or self-care (01) | LOC: LABW 08:58 | PROVIDERS: ATTEND Nurse Practitioner Adult Health | DX: I48.0 Paroxysmal atrial fibrillation (principal); Z79.899 Other long term (current) drug therapy | CPT/HCPCS: 36415; 85610 ==

== ENCOUNTER 2021-02-21 10:47 | Outpatient (CLI) | payer OTHER | END 2021-02-21 20:19 | disposition home or self-care (01) | LOC: LABW 10:47 | PROVIDERS: ATTEND Nurse Practitioner Adult Health | DX: I48.0 Paroxysmal atrial fibrillation (principal); Z79.899 Other long term (current) drug therapy | CPT/HCPCS: 36415; 85610 ==

== ENCOUNTER 2021-03-07 08:41 | Outpatient (CLI) | payer OTHER | END 2021-03-07 23:01 | disposition home or self-care (01) | LOC: LABW 08:41 | PROVIDERS: ATTEND Nurse Practitioner Adult Health | DX: I48.0 Paroxysmal atrial fibrillation (principal); Z79.899 Other long term (current) drug therapy | CPT/HCPCS: 36415; 85610 ==

== ENCOUNTER 2021-03-13 09:52 | Outpatient (CLI) | payer OTHER | END 2021-03-13 19:21 | disposition home or self-care (01) | LOC: LABW 09:52 | PROVIDERS: ATTEND Nurse Practitioner Adult Health | DX: I48.0 Paroxysmal atrial fibrillation (principal); Z79.899 Other long term (current) drug therapy | CPT/HCPCS: 36415; 85610 ==

== ENCOUNTER 2021-03-20 10:05 | Outpatient (CLI) | payer OTHER | END 2021-03-20 13:00 | disposition home or self-care (01) | LOC: LABW 10:05 | PROVIDERS: ATTEND Nurse Practitioner Adult Health | DX: I48.0 Paroxysmal atrial fibrillation (principal); Z79.899 Other long term (current) drug therapy | CPT/HCPCS: 36415; 85610 ==

== ENCOUNTER 2021-03-28 08:13 | Outpatient (CLI) | payer OTHER | END 2021-03-28 17:00 | disposition home or self-care (01) | LOC: LABW 08:13 | PROVIDERS: ATTEND Nurse Practitioner Adult Health | DX: I48.0 Paroxysmal atrial fibrillation (principal); Z79.899 Other long term (current) drug therapy | CPT/HCPCS: 36415; 85610 ==

== ENCOUNTER 2021-04-04 10:13 | Outpatient (CLI) | payer OTHER | END 2021-04-04 22:13 | disposition home or self-care (01) | LOC: LABW 10:13 | PROVIDERS: ATTEND Nurse Practitioner Adult Health | DX: I48.0 Paroxysmal atrial fibrillation (principal); Z79.899 Other long term (current) drug therapy | CPT/HCPCS: 36415; 85610 ==

== ENCOUNTER 2021-04-11 12:43 | Outpatient (CLI) | payer OTHER | END 2021-04-11 21:39 | disposition home or self-care (01) | LOC: LABW 12:43 | PROVIDERS: ATTEND Nurse Practitioner Adult Health | DX: I48.0 Paroxysmal atrial fibrillation (principal); Z79.899 Other long term (current) drug therapy | CPT/HCPCS: 36415; 85610 ==

== ENCOUNTER 2021-04-18 09:26 | Outpatient (CLI) | payer OTHER | END 2021-04-18 19:42 | disposition home or self-care (01) | LOC: LABW 09:26 | PROVIDERS: ATTEND Nurse Practitioner Adult Health | DX: I48.0 Paroxysmal atrial fibrillation (principal); Z79.899 Other long term (current) drug therapy | CPT/HCPCS: 36415; 85610 ==

== ENCOUNTER 2021-05-02 14:37 | Outpatient (CLI) | payer OTHER | END 2021-05-02 16:20 | disposition home or self-care (01) | LOC: LABW 14:37 | PROVIDERS: ATTEND Nurse Practitioner Adult Health | DX: I48.0 Paroxysmal atrial fibrillation (principal); Z79.899 Other long term (current) drug therapy | CPT/HCPCS: 36415; 85610 ==

== ENCOUNTER 2021-05-23 08:42 | Outpatient (CLI) | payer OTHER | END 2021-05-23 19:05 | disposition home or self-care (01) | LOC: LABW 08:42 | PROVIDERS: ATTEND Nurse Practitioner Adult Health | DX: I48.0 Paroxysmal atrial fibrillation (principal); Z79.899 Other long term (current) drug therapy | CPT/HCPCS: 36415; 85610 ==

== ENCOUNTER 2021-05-30 09:45 | Outpatient (CLI) | payer OTHER | END 2021-05-30 23:00 | disposition home or self-care (01) | LOC: LABW 09:45 | PROVIDERS: ATTEND Nurse Practitioner Adult Health | DX: I48.0 Paroxysmal atrial fibrillation (principal); Z79.899 Other long term (current) drug therapy | CPT/HCPCS: 36415; 85610 ==

== ENCOUNTER 2021-06-06 09:11 | Outpatient (CLI) | payer OTHER | END 2021-06-06 20:35 | disposition home or self-care (01) | LOC: LABW 09:11 | PROVIDERS: ATTEND Nurse Practitioner Adult Health | DX: I48.0 Paroxysmal atrial fibrillation (principal); Z79.899 Other long term (current) drug therapy | CPT/HCPCS: 36415; 85610 ==

== ENCOUNTER 2021-06-14 13:11 | Outpatient (CLI) | payer OTHER | END 2021-06-14 20:14 | disposition home or self-care (01) | LOC: LABW 13:11 | PROVIDERS: ATTEND Nurse Practitioner Adult Health | DX: I48.0 Paroxysmal atrial fibrillation (principal); Z79.899 Other long term (current) drug therapy | CPT/HCPCS: 36415; 85610 ==

== ENCOUNTER 2021-06-21 09:40 | Outpatient (CLI) | payer OTHER | END 2021-06-21 19:10 | disposition home or self-care (01) | LOC: LABW 09:40 | PROVIDERS: ATTEND Nurse Practitioner Adult Health | DX: I48.0 Paroxysmal atrial fibrillation (principal); Z79.899 Other long term (current) drug therapy | CPT/HCPCS: 36415; 85610 ==

== ENCOUNTER 2021-06-27 08:56 | Outpatient (CLI) | payer OTHER | END 2021-06-27 19:01 | disposition home or self-care (01) | LOC: LABW 08:56 | PROVIDERS: ATTEND Nurse Practitioner Adult Health | DX: I48.0 Paroxysmal atrial fibrillation (principal); Z79.899 Other long term (current) drug therapy | CPT/HCPCS: 36415; 85610 ==

== ENCOUNTER 2021-07-02 13:01 | Outpatient (CLI) | payer OTHER | END 2021-07-02 21:10 | disposition home or self-care (01) | LOC: LABW 13:01 | PROVIDERS: ATTEND Nurse Practitioner Adult Health | DX: I48.0 Paroxysmal atrial fibrillation (principal); Z79.899 Other long term (current) drug therapy | CPT/HCPCS: 36415; 85610 ==

== ENCOUNTER 2021-07-09 08:36 | Outpatient (CLI) | payer OTHER | END 2021-07-09 19:29 | disposition home or self-care (01) | LOC: LABW 08:36 | PROVIDERS: ATTEND Nurse Practitioner Adult Health | DX: I48.0 Paroxysmal atrial fibrillation (principal); Z79.899 Other long term (current) drug therapy | CPT/HCPCS: 36415; 85610 ==

== ENCOUNTER 2021-07-16 09:48 | Outpatient (CLI) | payer OTHER | END 2021-07-16 20:05 | disposition home or self-care (01) | LOC: LABW 09:48 | PROVIDERS: ATTEND Nurse Practitioner Adult Health | DX: I48.0 Paroxysmal atrial fibrillation (principal); Z79.899 Other long term (current) drug therapy | CPT/HCPCS: 36415; 85610 ==

== ENCOUNTER 2021-07-23 09:07 | Outpatient (CLI) | payer OTHER | END 2021-07-23 19:02 | disposition home or self-care (01) | LOC: LABW 09:07 | PROVIDERS: ATTEND Nurse Practitioner Adult Health | DX: I48.0 Paroxysmal atrial fibrillation (principal); Z79.899 Other long term (current) drug therapy | CPT/HCPCS: 36415; 85610 ==

== ENCOUNTER 2021-07-30 09:37 | Outpatient (CLI) | payer OTHER | END 2021-07-30 19:22 | disposition home or self-care (01) | LOC: LABW 09:37 | PROVIDERS: ATTEND Nurse Practitioner Adult Health | DX: I48.0 Paroxysmal atrial fibrillation (principal); Z79.899 Other long term (current) drug therapy | CPT/HCPCS: 36415; 85610 ==

== ENCOUNTER 2021-08-06 09:21 | Outpatient (CLI) | payer OTHER | END 2021-08-06 20:03 | disposition home or self-care (01) | LOC: LABW 09:21 | PROVIDERS: ATTEND Nurse Practitioner Adult Health | DX: I48.0 Paroxysmal atrial fibrillation (principal); Z79.899 Other long term (current) drug therapy | CPT/HCPCS: 36415; 85610 ==

== ENCOUNTER 2021-08-13 08:57 | Outpatient (CLI) | payer OTHER | END 2021-08-13 21:47 | disposition home or self-care (01) | LOC: LABW 08:57 | PROVIDERS: ATTEND Specialist | DX: I48.0 Paroxysmal atrial fibrillation (principal); Z79.899 Other long term (current) drug therapy | CPT/HCPCS: 36415; 85610 ==

== ENCOUNTER 2021-08-20 08:49 | Outpatient (CLI) | payer OTHER | END 2021-08-20 19:35 | disposition home or self-care (01) | LOC: LABW 08:49 | PROVIDERS: ATTEND Nurse Practitioner Adult Health | DX: I48.0 Paroxysmal atrial fibrillation (principal); Z79.899 Other long term (current) drug therapy | CPT/HCPCS: 36415; 85610 ==

== ENCOUNTER 2021-08-27 08:47 | Outpatient (CLI) | payer OTHER | END 2021-08-27 19:48 | disposition home or self-care (01) | LOC: LABW 08:47 | PROVIDERS: ATTEND Nurse Practitioner Adult Health | DX: I48.0 Paroxysmal atrial fibrillation (principal); Z79.899 Other long term (current) drug therapy | CPT/HCPCS: 36415; 85610 ==

== ENCOUNTER 2021-09-03 08:53 | Outpatient (CLI) | payer OTHER | END 2021-09-03 19:17 | disposition home or self-care (01) | LOC: LABW 08:53 | PROVIDERS: ATTEND Nurse Practitioner Adult Health | DX: I48.0 Paroxysmal atrial fibrillation (principal); Z79.899 Other long term (current) drug therapy | CPT/HCPCS: 36415; 85610 ==

== ENCOUNTER → 2021-09-10 | Outpatient (CLI) | payer OTHER | LOC: LABW 08:53 | PROVIDERS: ATTEND Nurse Practitioner Adult Health | DX: I48.0 Paroxysmal atrial fibrillation (principal); Z79.899 Other long term (current) drug therapy | CPT/HCPCS: 36415; 85610 ==

== ENCOUNTER 2021-09-17 09:35 | Outpatient (CLI) | payer OTHER | END 2021-09-17 19:00 | disposition home or self-care (01) | LOC: LABW 09:35 | PROVIDERS: ATTEND Nurse Practitioner Adult Health | DX: I48.0 Paroxysmal atrial fibrillation (principal); Z79.899 Other long term (current) drug therapy | CPT/HCPCS: 36415; 85610 ==

== ENCOUNTER 2021-09-24 09:28 | Outpatient (CLI) | payer OTHER | END 2021-09-24 18:53 | disposition home or self-care (01) | LOC: LABW 09:28 | PROVIDERS: ATTEND Nurse Practitioner Adult Health | DX: I48.0 Paroxysmal atrial fibrillation (principal); Z79.899 Other long term (current) drug therapy | CPT/HCPCS: 85610 ==

== ENCOUNTER 2021-10-01 09:37 | Outpatient (CLI) | payer OTHER | END 2021-10-01 18:50 | disposition home or self-care (01) | LOC: LABW 09:37 | PROVIDERS: ATTEND Nurse Practitioner Adult Health | DX: I48.0 Paroxysmal atrial fibrillation (principal); Z79.899 Other long term (current) drug therapy | CPT/HCPCS: 36415; 85610 ==

== ENCOUNTER 2021-10-08 09:59 | Outpatient (CLI) | payer OTHER | END 2021-10-08 19:51 | disposition home or self-care (01) | LOC: LABW 09:59 | PROVIDERS: ATTEND Nurse Practitioner Adult Health | DX: I48.0 Paroxysmal atrial fibrillation (principal); Z79.899 Other long term (current) drug therapy | CPT/HCPCS: 36415; 85610 ==

== ENCOUNTER 2021-10-15 10:30 | Outpatient (CLI) | payer OTHER | END 2021-10-15 20:24 | disposition home or self-care (01) | LOC: LABW 10:30 | PROVIDERS: ATTEND Nurse Practitioner Adult Health | DX: I48.0 Paroxysmal atrial fibrillation (principal); Z79.899 Other long term (current) drug therapy | CPT/HCPCS: 36415; 85610 ==

== ENCOUNTER 2021-10-22 09:44 | Outpatient (CLI) | payer OTHER | END 2021-10-22 20:54 | disposition home or self-care (01) | LOC: LABW 09:44 | PROVIDERS: ATTEND Nurse Practitioner Adult Health | DX: I48.0 Paroxysmal atrial fibrillation (principal); Z79.899 Other long term (current) drug therapy | CPT/HCPCS: 36415; 85610 ==

== ENCOUNTER 2021-10-29 08:55 | Outpatient (CLI) | payer OTHER | END 2021-10-29 19:01 | disposition home or self-care (01) | LOC: LABW 08:55 | PROVIDERS: ATTEND Nurse Practitioner Adult Health | DX: I48.0 Paroxysmal atrial fibrillation (principal); Z79.899 Other long term (current) drug therapy | CPT/HCPCS: 36415; 85610 ==

== ENCOUNTER 2021-11-07 09:56 | Outpatient (CLI) | payer OTHER | END 2021-11-07 18:56 | disposition home or self-care (01) | LOC: LABW 09:56 | PROVIDERS: ATTEND Specialist | DX: I48.0 Paroxysmal atrial fibrillation (principal); Z79.899 Other long term (current) drug therapy | CPT/HCPCS: 36415; 85610 ==

== ENCOUNTER 2021-12-10 09:17 | Outpatient (CLI) | payer OTHER | END 2021-12-10 19:05 | disposition home or self-care (01) | LOC: LABW 09:17 | PROVIDERS: ATTEND Nurse Practitioner Adult Health | DX: I48.0 Paroxysmal atrial fibrillation (principal); Z79.899 Other long term (current) drug therapy | CPT/HCPCS: 36415; 85610 ==

== ENCOUNTER 2021-12-26 14:25 | Emergency (ER) | payer OTHER ==
[~2021-12-26] VITALS: Ht 180.3 cm; Wt 65.8 kg
[2021-12-26 14:32] VITALS: TEMP 97
[2021-12-26 15:02] LABS: PLATELET COUNT 261 K/uL (142-355)
[2021-12-26 15:09] LABS: PARTIAL THROMBOPLASTIN TIME 33.2 SECONDS (24.5-33.6)
[2021-12-26 16:03] VITALS: BP 126/81
== END 2021-12-26 16:03 | disposition home or self-care (01) ==
LOC: ED 14:25
PROVIDERS: Hospitalist
PROC: 0HQ0XZZ Repair Scalp Skin, External Approach (ICD-10-PCS; principal; 2021-12-26)
DX: S01.01XA Laceration without foreign body of scalp, initial encounter (principal); Z79.01 Long term (current) use of anticoagulants; W01.0XXA Fall on same level from slipping, tripping and stumbling without subsequent striking against object, initial encounter; Y92.89 Other specified places as the place of occurrence of the external cause
CPT/HCPCS: 80048; 80320; 85027; 85610; 85730; 90471; 90715; 93005; 96365; 99283; 99284; J0690; J7040

== ENCOUNTER 2022-01-14 09:03 | Outpatient (CLI) | payer OTHER | END 2022-01-14 19:10 | disposition home or self-care (01) | LOC: LABW 09:03 | PROVIDERS: ATTEND Nurse Practitioner Adult Health | DX: I48.0 Paroxysmal atrial fibrillation (principal); Z79.899 Other long term (current) drug therapy | CPT/HCPCS: 36415; 85610 ==

== ENCOUNTER 2022-02-04 10:11 | Outpatient (CLI) | payer OTHER | END 2022-02-04 19:01 | disposition home or self-care (01) | LOC: LABW 10:11 | PROVIDERS: ATTEND Nurse Practitioner Adult Health | DX: I48.0 Paroxysmal atrial fibrillation (principal); Z79.899 Other long term (current) drug therapy | CPT/HCPCS: 36415; 85610 ==

== ENCOUNTER 2022-03-04 09:35 | Outpatient (CLI) | payer OTHER | END 2022-03-04 18:59 | disposition home or self-care (01) | LOC: LABW 09:35 | PROVIDERS: ATTEND Specialist | DX: Z79.01 Long term (current) use of anticoagulants (principal) | CPT/HCPCS: 36415; 85610 ==

== ENCOUNTER 2022-04-08 09:04 | Outpatient (CLI) | payer OTHER | END 2022-04-08 18:59 | disposition home or self-care (01) | LOC: LABW 09:04 | PROVIDERS: ATTEND Specialist | DX: Z79.01 Long term (current) use of anticoagulants (principal) | CPT/HCPCS: 36415; 85610 ==

== ENCOUNTER 2022-05-06 09:04 | Outpatient (CLI) | payer OTHER | END 2022-05-06 18:57 | disposition home or self-care (01) | LOC: LABW 09:04 | PROVIDERS: ATTEND Specialist | DX: Z79.01 Long term (current) use of anticoagulants (principal) | CPT/HCPCS: 36415; 85610 ==

== ENCOUNTER 2022-06-04 11:43 | Outpatient (CLI) | payer OTHER | END 2022-06-04 18:51 | disposition home or self-care (01) | LOC: LABW 11:43 | PROVIDERS: ATTEND Specialist | DX: Z79.01 Long term (current) use of anticoagulants (principal) | CPT/HCPCS: 36415; 85610 ==

== ENCOUNTER 2022-06-10 10:15 | Outpatient (CLI) | payer OTHER | END 2022-06-10 19:21 | disposition home or self-care (01) | LOC: LABW 10:15 | PROVIDERS: ATTEND Specialist | DX: Z79.01 Long term (current) use of anticoagulants (principal) | CPT/HCPCS: 36415; 85610 ==

== ENCOUNTER 2022-06-17 08:53 | Outpatient (CLI) | payer OTHER | END 2022-06-17 20:19 | disposition home or self-care (01) | LOC: LABW 08:53 | PROVIDERS: ATTEND Specialist | DX: Z79.01 Long term (current) use of anticoagulants (principal) | CPT/HCPCS: 85610 ==

== ENCOUNTER 2022-06-24 10:04 | Outpatient (CLI) | payer OTHER | END 2022-06-24 20:04 | disposition home or self-care (01) | LOC: LABW 10:04 | PROVIDERS: ATTEND Specialist | DX: Z79.01 Long term (current) use of anticoagulants (principal) | CPT/HCPCS: 36415; 85610 ==

== ENCOUNTER 2022-07-01 08:33 | Outpatient (CLI) | payer OTHER | END 2022-07-01 20:38 | disposition home or self-care (01) | LOC: LABW 08:33 | PROVIDERS: ATTEND Specialist | DX: Z79.01 Long term (current) use of anticoagulants (principal) | CPT/HCPCS: 36415; 85610 ==

== ENCOUNTER 2022-07-08 09:05 | Outpatient (CLI) | payer OTHER | END 2022-07-08 18:57 | disposition home or self-care (01) | LOC: LABW 09:05 | PROVIDERS: ATTEND Specialist | DX: Z79.01 Long term (current) use of anticoagulants (principal) | CPT/HCPCS: 36415; 85610 ==

== ENCOUNTER 2022-07-15 09:07 | Outpatient (CLI) | payer OTHER | END 2022-07-15 20:41 | disposition home or self-care (01) | LOC: LABW 09:07 | PROVIDERS: ATTEND Specialist | DX: Z79.01 Long term (current) use of anticoagulants (principal) | CPT/HCPCS: 36415; 85610 ==

== ENCOUNTER 2022-07-22 09:06 | Outpatient (CLI) | payer OTHER | END 2022-07-22 18:57 | disposition home or self-care (01) | LOC: LABW 09:06 | PROVIDERS: ATTEND Specialist | DX: Z79.01 Long term (current) use of anticoagulants (principal) | CPT/HCPCS: 36415; 85610 ==

== ENCOUNTER 2022-07-29 09:52 | Outpatient (CLI) | payer OTHER | END 2022-07-29 19:33 | disposition home or self-care (01) | LOC: LABW 09:52 | PROVIDERS: ATTEND Specialist | DX: Z79.01 Long term (current) use of anticoagulants (principal) | CPT/HCPCS: 36415; 85610 ==

== ENCOUNTER 2022-08-01 10:14 | Outpatient (CLI) | payer OTHER | END 2022-08-01 21:58 | disposition home or self-care (01) | LOC: LABW 10:14 | PROVIDERS: ATTEND Specialist | DX: Z79.01 Long term (current) use of anticoagulants (principal) | CPT/HCPCS: 36415; 85610 ==

== ENCOUNTER 2022-08-05 08:56 | Outpatient (CLI) | payer OTHER | END 2022-08-05 19:38 | disposition home or self-care (01) | LOC: LABW 08:56 | PROVIDERS: ATTEND Specialist | DX: Z79.01 Long term (current) use of anticoagulants (principal) | CPT/HCPCS: 36415; 85610 ==

== ENCOUNTER 2022-08-12 09:28 | Outpatient (CLI) | payer OTHER | END 2022-08-12 19:59 | disposition home or self-care (01) | LOC: LABW 09:28 | PROVIDERS: ATTEND Specialist | DX: Z79.01 Long term (current) use of anticoagulants (principal) | CPT/HCPCS: 36415; 85610 ==

== ENCOUNTER 2022-08-19 09:33 | Outpatient (CLI) | payer OTHER | END 2022-08-19 20:26 | disposition home or self-care (01) | LOC: LABW 09:33 | PROVIDERS: ATTEND Specialist | DX: Z79.01 Long term (current) use of anticoagulants (principal) | CPT/HCPCS: 36415; 85610 ==

== ENCOUNTER 2022-08-26 08:33 | Outpatient (CLI) | payer OTHER | END 2022-08-26 19:34 | disposition home or self-care (01) | LOC: LABW 08:33 | PROVIDERS: ATTEND Specialist | DX: Z79.01 Long term (current) use of anticoagulants (principal) | CPT/HCPCS: 36415; 85610 ==

== ENCOUNTER 2022-09-02 10:06 | Outpatient (CLI) | payer OTHER | END 2022-09-02 19:34 | disposition home or self-care (01) | LOC: LABW 10:06 | PROVIDERS: ATTEND Specialist | DX: Z79.01 Long term (current) use of anticoagulants (principal) | CPT/HCPCS: 36415; 85610 ==

== ENCOUNTER 2022-09-09 10:24 | Outpatient (CLI) | payer OTHER | END 2022-09-09 20:22 | disposition home or self-care (01) | LOC: LABW 10:24 | PROVIDERS: ATTEND Specialist | DX: Z79.01 Long term (current) use of anticoagulants (principal) | CPT/HCPCS: 36415; 85610 ==

== ENCOUNTER 2022-09-16 10:02 | Outpatient (CLI) | payer OTHER | END 2022-09-16 18:56 | disposition home or self-care (01) | LOC: LABW 10:02 | PROVIDERS: ATTEND Specialist | DX: Z79.01 Long term (current) use of anticoagulants (principal) | CPT/HCPCS: 36415; 85610 ==

== ENCOUNTER 2022-10-15 09:26 | Outpatient (CLI) | payer OTHER | END 2022-10-15 19:15 | disposition home or self-care (01) | LOC: LABW 09:26 | PROVIDERS: ATTEND Specialist | DX: Z79.01 Long term (current) use of anticoagulants (principal) | CPT/HCPCS: 36415; 85610 ==

== ENCOUNTER 2022-11-18 09:54 | Outpatient (CLI) | payer OTHER | END 2022-11-18 20:19 | disposition home or self-care (01) | LOC: LABW 09:54 | PROVIDERS: ATTEND Specialist | DX: Z79.01 Long term (current) use of anticoagulants (principal) | CPT/HCPCS: 36415; 85610 ==

== ENCOUNTER 2022-11-25 09:17 | Outpatient (CLI) | payer OTHER | END 2022-11-25 18:56 | disposition home or self-care (01) | LOC: LABW 09:17 | PROVIDERS: ATTEND Specialist | DX: Z79.01 Long term (current) use of anticoagulants (principal) | CPT/HCPCS: 36415; 85610 ==

== ENCOUNTER 2022-12-02 10:32 | Outpatient (CLI) | payer OTHER | END 2022-12-02 20:46 | disposition home or self-care (01) | LOC: LABW 10:32 | PROVIDERS: ATTEND Specialist | DX: Z79.01 Long term (current) use of anticoagulants (principal) | CPT/HCPCS: 36415; 85610 ==

== ENCOUNTER 2022-12-09 10:07 | Outpatient (CLI) | payer OTHER | END 2022-12-09 19:03 | disposition home or self-care (01) | LOC: LABW 10:07 | PROVIDERS: ATTEND Specialist | DX: Z79.01 Long term (current) use of anticoagulants (principal) | CPT/HCPCS: 36415; 85610 ==

== ENCOUNTER 2022-12-16 09:24 | Outpatient (CLI) | payer OTHER | END 2022-12-16 21:27 | disposition home or self-care (01) | LOC: LABW 09:24 | PROVIDERS: ATTEND Specialist | DX: Z79.01 Long term (current) use of anticoagulants (principal) | CPT/HCPCS: 36415; 85610 ==

== ENCOUNTER 2022-12-23 09:25 | Outpatient (CLI) | payer OTHER | END 2022-12-23 18:56 | disposition home or self-care (01) | LOC: LABW 09:25 | PROVIDERS: ATTEND Internal Medicine Interventional Cardiology | DX: Z79.01 Long term (current) use of anticoagulants (principal) | CPT/HCPCS: 36415; 85610 ==

== ENCOUNTER 2022-12-30 09:40 | Outpatient (CLI) | payer OTHER | END 2022-12-30 20:09 | disposition home or self-care (01) | LOC: LABW 09:40 | PROVIDERS: ATTEND Specialist | DX: Z79.01 Long term (current) use of anticoagulants (principal) | CPT/HCPCS: 36415; 85610 ==

== ENCOUNTER 2023-01-06 11:14 | Outpatient (CLI) | payer OTHER | END 2023-01-06 19:02 | disposition home or self-care (01) | LOC: LABW 11:14 | PROVIDERS: ATTEND Specialist | DX: Z79.01 Long term (current) use of anticoagulants (principal) | CPT/HCPCS: 36415; 85610 ==

== ENCOUNTER 2023-01-15 09:44 | Outpatient (CLI) | payer OTHER | END 2023-01-15 19:13 | disposition home or self-care (01) | LOC: LABW 09:44 | PROVIDERS: ATTEND Specialist | DX: Z79.01 Long term (current) use of anticoagulants (principal) | CPT/HCPCS: 36415; 85610 ==

== ENCOUNTER 2023-01-20 10:29 | Outpatient (CLI) | payer OTHER | END 2023-01-20 18:58 | disposition home or self-care (01) | LOC: LABW 10:29 | PROVIDERS: ATTEND Specialist | DX: Z79.01 Long term (current) use of anticoagulants (principal) | CPT/HCPCS: 36415; 85610 ==

== ENCOUNTER 2023-01-27 08:58 | Outpatient (CLI) | payer OTHER | END 2023-01-27 19:38 | LOC: LABW 08:58 | PROVIDERS: ATTEND Specialist | DX: Z79.01 Long term (current) use of anticoagulants (principal) | CPT/HCPCS: 36415; 85610 ==

== ENCOUNTER 2023-02-03 08:55 | Outpatient (CLI) | payer OTHER | END 2023-02-03 18:59 | disposition home or self-care (01) | LOC: LABW 08:55 | PROVIDERS: ATTEND Specialist | DX: Z79.01 Long term (current) use of anticoagulants (principal) | CPT/HCPCS: 36415; 85610 ==

== ENCOUNTER 2023-02-10 10:04 | Outpatient (CLI) | payer OTHER | END 2023-02-10 20:13 | disposition home or self-care (01) | LOC: LABW 10:04 | PROVIDERS: ATTEND Specialist | DX: Z79.01 Long term (current) use of anticoagulants (principal) | CPT/HCPCS: 36415; 85610 ==

== ENCOUNTER 2023-02-17 09:34 | Outpatient (CLI) | payer OTHER | END 2023-02-17 18:53 | disposition home or self-care (01) | LOC: LABW 09:34 | PROVIDERS: ATTEND Specialist | DX: Z79.01 Long term (current) use of anticoagulants (principal) | CPT/HCPCS: 36415; 85610 ==

== ENCOUNTER 2023-02-25 10:10 | Outpatient (CLI) | payer OTHER | END 2023-02-25 21:09 | LOC: LABW 10:10 | PROVIDERS: ATTEND Specialist | DX: Z79.01 Long term (current) use of anticoagulants (principal) | CPT/HCPCS: 36415; 85610 ==

== ENCOUNTER 2023-03-04 11:04 | Outpatient (CLI) | payer OTHER | END 2023-03-04 18:57 | disposition home or self-care (01) | LOC: LABW 11:04 | PROVIDERS: ATTEND Specialist | DX: Z79.01 Long term (current) use of anticoagulants (principal) | CPT/HCPCS: 36415; 85610 ==

== ENCOUNTER 2023-03-10 11:03 | Outpatient (CLI) | payer OTHER | END 2023-03-10 20:02 | disposition home or self-care (01) | LOC: LABW 11:03 | PROVIDERS: ATTEND Specialist | DX: Z79.01 Long term (current) use of anticoagulants (principal) | CPT/HCPCS: 36415; 85610 ==

== ENCOUNTER 2023-03-17 09:57 | Outpatient (CLI) | payer OTHER | END 2023-03-17 18:57 | disposition home or self-care (01) | LOC: LABW 09:57 | PROVIDERS: ATTEND Specialist | DX: Z79.01 Long term (current) use of anticoagulants (principal) | CPT/HCPCS: 36415; 85610 ==

== ENCOUNTER 2023-03-24 09:55 | Outpatient (CLI) | payer OTHER | END 2023-03-24 19:21 | disposition home or self-care (01) | LOC: LABW 09:55 | PROVIDERS: ATTEND Specialist | DX: Z79.01 Long term (current) use of anticoagulants (principal) | CPT/HCPCS: 36415; 85610 ==

== ENCOUNTER 2023-03-31 08:57 | Outpatient (CLI) | payer OTHER | END 2023-03-31 19:25 | disposition home or self-care (01) | LOC: LABW 08:57 | PROVIDERS: ATTEND Specialist | DX: Z79.01 Long term (current) use of anticoagulants (principal) | CPT/HCPCS: 36415; 85610 ==

== ENCOUNTER 2023-04-07 09:55 | Outpatient (CLI) | payer OTHER | END 2023-04-07 20:47 | disposition home or self-care (01) | LOC: LABW 09:55 | PROVIDERS: ATTEND Specialist | DX: Z79.01 Long term (current) use of anticoagulants (principal) | CPT/HCPCS: 36415; 85610 ==

== ENCOUNTER 2023-04-15 09:32 | Outpatient (CLI) | payer OTHER | END 2023-04-15 19:13 | disposition home or self-care (01) | LOC: LABW 09:32 | PROVIDERS: ATTEND Specialist | DX: Z79.01 Long term (current) use of anticoagulants (principal) | CPT/HCPCS: 36415; 85610 ==

== ENCOUNTER 2023-04-28 10:25 | Outpatient (CLI) | payer OTHER | END 2023-04-28 21:53 | disposition home or self-care (01) | LOC: LABW 10:25 | PROVIDERS: ATTEND Specialist | DX: Z79.01 Long term (current) use of anticoagulants (principal) | CPT/HCPCS: 36415; 85610 ==

== ENCOUNTER 2023-05-05 14:29 | Outpatient (CLI) | payer OTHER | END 2023-05-05 19:17 | disposition home or self-care (01) | LOC: LABW 14:29 | PROVIDERS: ATTEND Specialist | DX: Z79.01 Long term (current) use of anticoagulants (principal) | CPT/HCPCS: 36415; 85610 ==

== ENCOUNTER 2023-05-12 09:38 | Outpatient (CLI) | payer OTHER | END 2023-05-12 21:20 | disposition home or self-care (01) | LOC: LABW 09:38 | PROVIDERS: ATTEND Specialist | DX: Z79.01 Long term (current) use of anticoagulants (principal) | CPT/HCPCS: 36415; 85610 ==

== ENCOUNTER 2023-05-19 10:16 | Outpatient (CLI) | payer OTHER | END 2023-05-19 20:20 | disposition home or self-care (01) | LOC: LABW 10:16 | PROVIDERS: ATTEND Specialist | DX: Z79.01 Long term (current) use of anticoagulants (principal) | CPT/HCPCS: 36415; 85610 ==

== ENCOUNTER 2023-05-26 10:56 | Outpatient (CLI) | payer OTHER | END 2023-05-26 23:15 | disposition home or self-care (01) | LOC: LABW 10:56 | PROVIDERS: ATTEND Specialist | DX: Z79.01 Long term (current) use of anticoagulants (principal) | CPT/HCPCS: 36415; 85610 ==

== ENCOUNTER 2023-06-03 09:58 | Outpatient (CLI) | payer OTHER | END 2023-06-03 22:03 | disposition home or self-care (01) | LOC: LABW 09:58 | PROVIDERS: ATTEND Specialist | DX: Z79.01 Long term (current) use of anticoagulants (principal) | CPT/HCPCS: 36415; 85610 ==

== ENCOUNTER 2023-06-09 10:32 | Outpatient (CLI) | payer OTHER | END 2023-06-09 19:07 | disposition home or self-care (01) | LOC: LABW 10:32 | PROVIDERS: ATTEND Specialist | DX: Z79.01 Long term (current) use of anticoagulants (principal) | CPT/HCPCS: 36415; 85610 ==

== ENCOUNTER 2023-06-17 10:07 | Outpatient (CLI) | payer OTHER | END 2023-06-17 20:45 | disposition home or self-care (01) | LOC: LABW 10:07 | PROVIDERS: ATTEND Specialist | DX: Z79.01 Long term (current) use of anticoagulants (principal) | CPT/HCPCS: 36415; 85610 ==

== ENCOUNTER 2023-07-07 08:48 | Outpatient (CLI) | payer OTHER | END 2023-07-07 19:00 | disposition home or self-care (01) | LOC: LABW 08:48 | PROVIDERS: ATTEND Specialist | DX: Z79.01 Long term (current) use of anticoagulants (principal) | CPT/HCPCS: 36415; 85610 ==

== ENCOUNTER 2023-07-14 09:17 | Outpatient (CLI) | payer OTHER | END 2023-07-14 19:14 | disposition home or self-care (01) | LOC: LABW 09:17 | PROVIDERS: ATTEND Specialist | DX: Z79.01 Long term (current) use of anticoagulants (principal) | CPT/HCPCS: 36415; 85610 ==

== ENCOUNTER 2023-07-21 09:51 | Outpatient (CLI) | payer OTHER | END 2023-07-21 18:53 | disposition home or self-care (01) | LOC: LABW 09:51 | PROVIDERS: ATTEND Specialist | DX: Z79.01 Long term (current) use of anticoagulants (principal) | CPT/HCPCS: 36415; 85610 ==

== ENCOUNTER 2023-10-27 08:48 | Outpatient (CLI) | payer OTHER | END 2023-10-27 19:35 | disposition home or self-care (01) | LOC: LABW 08:48 | PROVIDERS: ATTEND Specialist | DX: Z79.01 Long term (current) use of anticoagulants (principal) | CPT/HCPCS: 36415; 85610 ==